=== PATIENT | male | born 1965 | race Caucasian/White ===

== ENCOUNTER 2018-02-27 08:15 | Emergency (ER) | payer BC, MEDICARE ==
[~2018-02-27] VITALS: Ht 162.6 cm; Wt 74.8 kg
--- NOTE | 2018-02-27 08:20 | NUR ---
PT AMBULATES TO BED 7
[2018-02-27 08:24] VITALS: BP 135/90
--- NOTE | 2018-02-27 08:28 | NUR ---
52/M BIB SELF C/O RIGHT SHOULDER PAIN X 2 DAYS. DENIES INJURY. DENIES N/V/D; SKIN IS PINK/WARM/DRY; AAOX4 WITH EVEN AND STEADY GAIT; LUNGS CLEAR BL; HR EVEN AND REGULAR. PATIENT STATES PAIN OF 9/10 AT THIS TIME. PATIENT POSITIONED FOR COMFORT; HOB ELEVATED; BEDRAILS UP X2; BED DOWN. ER MD MADE AWARE OF PT STATUS.
--- NOTE | 2018-02-27 09:15 | NUR ---
X RAY AT BEDSIDE.
--- NOTE | 2018-02-27 09:32 | NUR ---
Patient discharged with v/s stable. Written and verbal after care instructions given and explained. Patient alert, oriented and verbalized understanding of instructions. Ambulatory with steady gait. All questions addressed prior to discharge. ID band removed. Patient advised to follow up with PMD. Rx of NORCO, IBUPROFEN given. Patient educated on indication of medication including possible reaction and side effects. Opportunity to ask questions provided and answered.
[2018-02-27 09:33] VITALS: BP 123/90
== END 2018-02-27 09:32 | disposition home or self-care (01) ==
LOC: MED 08:15
DX: M25.511 Pain in right shoulder (principal); W22.8XXA Striking against or struck by other objects, initial encounter; Y93.89 Activity, other specified; Y92.89 Other specified places as the place of occurrence of the external cause; Y99.8 Other external cause status
CPT/HCPCS: 73030; 99283

== ENCOUNTER 2020-01-28 14:36 | Emergency (ER) | payer BC ==
[~2020-01-28] VITALS: Ht 180.3 cm; Wt 88.5 kg
[2020-01-28 14:40] VITALS: BP 149/78
--- NOTE | 2020-01-28 14:40 | NUR ---
C/O SOB, WEAKNESS SINCE THIS MORNING. AAOX4. RESP LABORED. SP02 93% RA. PT WILL REMAIN IN TENT AT THIS TIME NO PMH NKDA
--- NOTE | 2020-01-28 16:57 | NUR ---
COVID SWAB PERFORMED AND SENT TO LAB
[2020-01-28 16:58] VITALS: BP 149/78
--- NOTE | 2020-01-28 16:58 | NUR ---
Patient discharged with v/s stable. Written and verbal after care instructions given and explained. Patient alert, oriented and verbalized understanding of instructions. Ambulatory with steady gait. All questions addressed prior to discharge. ID band removed. Patient advised to follow up with PMD. Rx of PREDNISONE, ALBUTEROL given. Patient educated on indication of medication including possible reaction and side effects. Opportunity to ask questions provided and answered.
== END 2020-01-28 16:58 | disposition home or self-care (01) ==
LOC: MED 14:36
DX: U07.1 COVID-19 (principal); J45.909 Unspecified asthma, uncomplicated
CPT/HCPCS: 71045; 99284; U0003

== ENCOUNTER 2020-03-01 04:50 | Inpatient (IN) | payer BC, SELFPAY ==
[~2020-03-01] VITALS: Ht 167.6 cm; Wt 65.3 kg
[2020-03-01] MEDS ORDERED: NACL 0.9% 1,000 ML IV ONE (05:55)
[2020-03-01] MEDS ORDERED: ONDANSETRON 4 MG/2 ML VIAL IVP ONE (05:55)
[2020-03-01] MEDS ORDERED: MORPHINE SULFATE 4 MG/ML SYR IVP ONE ×2 (05:55→10:00)
[2020-03-01 05:59] VITALS: BP 110/70
--- NOTE | 2020-03-01 05:59 | NUR ---
TO MARYCARMEN VIA W/C
--- NOTE | 2020-03-01 06:02 | NUR ---
SEEN AND EXAMINED BY HEATHER WITH ORDERS, CARRIED OUT
--- NOTE | 2020-03-01 06:20 | NUR ---
MEDICATED PER ERMDS ORDER, TOLERATED WELL.
[2020-03-01 06:44] LABS: BASOPHILS % (AUTO) 0.4 % (0.0-2.0); EOSINOPHILS # (AUTO) 0.1 K/uL (0-0.4); EOSINOPHILS % (AUTO) 1.4 % (0.0-4.0); HEMATOCRIT 38.8 % (36-52); HEMOGLOBIN 12.6 g/dL (12.0-18.0); LYMPHOCYTES # (AUTO) 1.3 K/uL (2.0-11.5); LYMPHOCYTES % (AUTO) 15.2 % (20.5-51.1); MEAN CORPUSCULAR HEMOGLOBIN 25 pg (27-31); MEAN CORPUSCULAR HGB CONC 33 g/dL (33-37); MEAN CORPUSCULAR VOLUME 77.4 fL (80-94); MONOCYTES # (AUTO) 0.8 K/uL (0.8-1.0); MONOCYTES % (AUTO) 9.2 % (1.7-9.3); NEUTROPHILS # (AUTO) 6.5 K/uL (1.8-7.7); NEUTROPHILS % (AUTO) 73.8 % (42.2-75.2); PLATELET COUNT (AUTO) 334 K/uL (140-450); RED BLOOD CELL COUNT(AUTO) 5.01 MIL/uL (4.20-6.10); RED CELL DISTRIBUTION WIDTH 15.4 % (11.6-13.7); WHITE BLOOD COUNT (AUTO) 8.9 K/uL (4.8-10.8)
--- NOTE | 2020-03-01 07:10 | NUR ---
CONSENT FOR CT WITH IV CONTRAST SIGNED AND CONSENTED
[2020-03-01 07:12] LABS: ALBUMIN 3.4 g/dL (3.4-5.0); ANION GAP 13.7 (8-16); CARBON DIOXIDE 27.2 mmol/L (21-32); CREATININE 0.8 mg/dL (0.6-1.3); POTASSIUM 3.9 mmol/L (3.5-5.1); TOTAL BILIRUBIN 0.5 mg/dL (0.0-1.0)
[2020-03-01] MEDS ORDERED: metroNIDAZOLE 500 MG/NS PREMIX 100 ML IV ONE (10:00)
[2020-03-01] MEDS ORDERED: LEVOFLOXACIN 500 MG/D5W PREMIX 100 ML IV ONE (10:00)
--- NOTE | 2020-03-01 10:28 | NUR ---
Patient moved to bed 11 for further care.
[2020-03-01 12:29] LABS: PROTHROMBIN TIME 9.1 secs (10.8-13.4)
[2020-03-01] MEDS ORDERED: ONDANSETRON 4 MG/2 ML VIAL IM/IVP PRN (12:50)
[2020-03-01] MEDS ORDERED: DOCUSATE SODIUM 100 MG GELCAP PO PRN (12:50)
[2020-03-01] MEDS ORDERED: ACETAMINOPHEN 325 MG TAB PO PRN (12:50)
[2020-03-01] MEDS ORDERED: POTASSIUM CHLORIDE 10 MEQ TABER PO PRN (12:50)
[2020-03-01] MEDS ORDERED: DEXTROSE 50% 50 ML SYR IVP PRN (13:00)
[2020-03-01] MEDS: NACL 0.9% 1,000 ML IV SCH (13:10)
[2020-03-01 14:09] LABS: APPEARANCE,URINE HAZY (CLEAR); BILIRUBIN,URINE NEGATIVE (NEGATIVE); BLOOD, URINE NEGATIVE (NEGATIVE); COLOR,URINE YELLOW (YELLOW); LEUKOCYTE ESTERASE ,URINE NEGATIVE (NEGATIVE); NITRITE, URINE NEGATIVE (NEGATIVE); PH,URINE 5.5 (5.0-9.0); UGLUCOSE 1+ (NEGATIVE)
[2020-03-01 14:31] LABS: MAGNESIUM 2.2 mg/dL (1.8-2.4); PHOSPHORUS 3.4 mg/dL (2.5-4.9)
[2020-03-01] MEDS: metroNIDAZOLE 500 MG/NS PREMIX 100 ML IV SCH ×2 (16:15→21:53)
[2020-03-01] MEDS: BLOOD GLUCOSE MONITORING 1 DEV DEV FS SCH ×2 (17:02→21:53)
[2020-03-01] MEDS: SENNA 8.6 MG TAB PO SCH (17:03)
[2020-03-01] MEDS: POLYETHYLENE GLYCOL 17 GM/PKT PO SCH (17:03)
[2020-03-01] MEDS: INSULIN LISPRO SLIDING SCALE 100 UNITS/ML VIAL SUBQ PRN (17:04)
[2020-03-01 17:24] LABS: PROTHROMBIN TIME 9.5 secs (10.8-13.4)
[2020-03-01 21:30] VITALS: BP 128/88
[2020-03-01] MEDS: LACTULOSE 20 GM/30 ML UDC PO SCH (21:53)
[2020-03-01] MEDS: DOCUSATE SODIUM 100 MG GELCAP PO SCH (21:54)
--- NOTE | 2020-03-01 22:00 | NUR ---
PT TRANSFERRED TO [facility], ROOM 124A BY EMT @ THIS TIME VIA W/C. REPORT GIVEN TO JOSE CRUZ ROBERT. VSS UPON TRANSFER.
--- NOTE | 2020-03-01 22:30 | NUR ---
PT BROUGHT UP BY W/C TO ROOM 124, PT AMBULATED TO THE BED. PT IS AOX4 AND AMBULATORY. V/S STABLE ALL REQUESTED NEEDS ATTENDED BY STAFF.
--- NOTE | 2020-03-01 22:45 | NUR ---
PT STANDBY ASITS TO THE TOILET. IV SITE INTACT AND RUNNING N/S AT 60 MLS/HR.
[2020-03-01] MEDS: HYDROcodone/APAP 7.5/325 MG 1 TAB PO PRN (23:35)
--- NOTE | 2020-03-01 23:45 | NUR ---
PT GIVEN NORCO FOR PAIN IN LOWER ABDOMEN. WILL MONITOR FOR EFFECT.
--- NOTE | 2020-03-02 02:34 | NUR ---
PT C/O OF NOT HAVING BOWEL MOVEMENT IN 2 DAYS, BOWEL PREP GIVEN, PT NO LONGER HAVING BM, CONTACTED MD ZAVALA FOR ANY NEW ORDERS.
--- NOTE | 2020-03-02 03:03 | NUR ---
MD ZAVALA TEXTED BACK, POSSIBLE BOWEL OBSTRUCTION? WILL REVIEW THE CASE IN THE AM, NO NEW ORDERS NOTED.
[2020-03-02 04:00] VITALS: BP 126/79
[2020-03-02] MEDS: NACL 0.9% 1,000 ML IV SCH (05:30)
[2020-03-02 06:09] LABS: BASOPHILS % (AUTO) 0.6 % (0.0-2.0); EOSINOPHILS # (AUTO) 0.1 K/uL (0-0.4); EOSINOPHILS % (AUTO) 1.4 % (0.0-4.0); HEMATOCRIT 33.9 % (36-52); HEMOGLOBIN 10.6 g/dL (12.0-18.0); LYMPHOCYTES # (AUTO) 1.6 K/uL (2.0-11.5); LYMPHOCYTES % (AUTO) 18.9 % (20.5-51.1); MEAN CORPUSCULAR HEMOGLOBIN 25 pg (27-31); MEAN CORPUSCULAR HGB CONC 31 g/dL (33-37); MEAN CORPUSCULAR VOLUME 78.2 fL (80-94); MONOCYTES % (AUTO) 12.4 % (1.7-9.3); NEUTROPHILS # (AUTO) 5.5 K/uL (1.8-7.7); NEUTROPHILS % (AUTO) 66.7 % (42.2-75.2); PLATELET COUNT (AUTO) 286 K/uL (140-450); RED BLOOD CELL COUNT(AUTO) 4.33 MIL/uL (4.20-6.10); RED CELL DISTRIBUTION WIDTH 15.6 % (11.6-13.7); WHITE BLOOD COUNT (AUTO) 8.3 K/uL (4.8-10.8)
[2020-03-02] MEDS ORDERED: MORPHINE SULFATE 4 MG/ML SYR IVP PRN (06:25)
--- NOTE | 2020-03-02 06:31 | NUR ---
RETURNED SWAPNA, PT IN A LOT OF PAIN MD ZAVALA TEXTED NEW ORDER FOR MORPHINE IVP. FLAGYL HUNG ORDERED.
[2020-03-02 06:34] LABS: ANION GAP 15.4 (8-16); CARBON DIOXIDE 26.1 mmol/L (21-32); CREATININE 0.8 mg/dL (0.6-1.3); POTASSIUM 4.5 mmol/L (3.5-5.1)
[2020-03-02] MEDS: INSULIN LISPRO SLIDING SCALE 100 UNITS/ML VIAL SUBQ PRN ×4 (06:58→23:27)
--- NOTE | 2020-03-02 07:00 | NUR ---
PAIN RELIEVED PT REASTING IN BED FLUIDS RUNNING ORDERED.
--- NOTE | 2020-03-02 07:10 | NUR ---
RECEIVED BEDSIDE REPORT FROM ELEVATOR ERECTOR HELPER NURSE. AOX4. RESPIRATIONS EVEN AND UNLABORED. ON ROOM AIR SATING AT 96%. NO RESPIRATORY DISTRESS NOTED. SKIN IS WARM AND INTACT. IV SITE IS ON THE RAC 18 G RUNNING NS @ 60 CC/HR. INTACT AND PATENT. PLAN OF CARE WAS DISCUSSED. ON BOWEL PREPARATION. SAFETY PRECAUTIONS IN PLACE. CALL LIGHT WITHIN REACH. WILL CONTINUE TO MONITOR.
[2020-03-02 08:00] VITALS: BP 116/79
[2020-03-02] MEDS: BLOOD GLUCOSE MONITORING 1 DEV DEV FS SCH ×4 (08:00→23:23)
[2020-03-02] MEDS: metroNIDAZOLE 500 MG/NS PREMIX 100 ML IV SCH ×3 (08:01→21:38)
--- NOTE | 2020-03-02 09:10 | NUR ---
PATIENT HAS BEEN SCREENED AND CATEGORIZED MODERATE NUTRITION RISK. PATIENT WILL BE SEEN WITHIN 3-5 DAYS OF ADMISSION. 03/04/20 03/06/[address]
[2020-03-02] MEDS: DOCUSATE SODIUM 100 MG GELCAP PO SCH (09:23)
[2020-03-02] MEDS: HYDROcodone/APAP 7.5/325 MG 1 TAB PO PRN (09:23)
[2020-03-02] MEDS: SENNA 8.6 MG TAB PO SCH ×3 (09:23→17:44)
[2020-03-02] MEDS: LACTULOSE 20 GM/30 ML UDC PO SCH ×4 (09:23→21:38)
[2020-03-02] MEDS: LEVOFLOXACIN 500 MG/D5W PREMIX 100 ML IV SCH (09:24)
[2020-03-02] MEDS: POLYETHYLENE GLYCOL 17 GM/PKT PO SCH ×3 (09:24→17:44)
--- NOTE | 2020-03-02 09:30 | NUR ---
ALL SCHEDULED MEDS GIVEN. PT IS STABLE. NO DISTRESS NOTED. WILL CONTINUE TO MONITOR.
--- NOTE | 2020-03-02 10:15 | NUR ---
SOCIAL WORK NOTE: DANNIE WAS UNABLE TO MEET PATIENT AT BEDSIDE. DANNIE CONTACTED ISATU FERNANDO [phone] TO COMPLETE ASSESSMENT. SW LEFT VM AND WILL FOLLOW UP. Addendum: 03/03/20 at 1044 by Manas Zaldivar SS Patient's Orientation Unable To Assess Information Provided By ISATU QUINTANA - Comments SW WAS UNABLE TO MEET PATIENT AT BEDSIDE. DANNIE COMPLETED ASSESSMENT WITH PATIENT'S . Fishery Biologist, Realtionship and Phone Number ISATU ELLIOTT [phone] Healthcare Power of Baggage Screener No Does Patient Have a POLST No Identifying Problems No Social Work Triggers Is A Social Work Consult Needed No Mandate Report Filed No Explanation Of Identifying Problems PATIENT IS A 54-YEAR-OLD MALE ADMITTED FOR ACUTE DIVERTICULITIS. PATIENT HAS PMHX OF HEMMORRHOIDS AND INSULIN DEPENDENT DIABETES. REPORTED NO HX OF SUBSTANCE ABUSE OR MENTAL HEALTH. Admitted From Home Pre-Admission Level Of Functioning Status Independent/Ambulatory Prior Resources/Services Used In Last 12 Months No Prior Resources Used Prior DME No Prior DME Used Dialysis Comments N/A Living Situation Apartment Lives With Family Patient Had Caregiver No Home Support No Caregiver Issues Financial Issues No Known Financial Issue Referral To The Financial Counselor Needed No Factors/Needs No D/C Needs Identified Pt/Rep Participated In Discharge Plan Yes Patient/Family Agress With Discharge Plan Yes Discharge Plan Comments TENTATIVE DISCHARGE PLAN IS FOR PATIENT TO RETURN HOME. DC Plan Status Initiated
--- NOTE | 2020-03-02 11:30 | NUR ---
BLOOD GLUCOSE CHECK IS 254. INSULIN COVERAGE NEEDED. ADMINISTERED 4 UNITS OF INSULIN.
[2020-03-02 12:00] VITALS: BP 118/76
[2020-03-02] MEDS ORDERED: BOWEL EVACUANT DRINK 4,000 ML PDS PO ONE (13:00)
[2020-03-02] MEDS ORDERED: MAGNESIUM CITRATE 300 ML BTL PO SCH (13:00)
--- NOTE | 2020-03-02 14:05 | NUR ---
CHECKED ON PATIENT. PATIENT IS STABLE. NO DISTRESS NOTED. WILL CONTINUE TO MONITOR.
--- NOTE | 2020-03-02 14:17 | NUR ---
NOTIFIED DR. TERAN REGARDING PATIENT'S COLONOSCOPY PROCEDURE. RADIOLOGY UNIT WILL NOT BE ABLE TO DO PROCEDURE DUE TO EQUIPMENT MALFUNCTION. IS AWARE OF THE ISSUES. AWAITING NEW ORDERS. WILL CONTINUE TO MONITOR.
[2020-03-02] MEDS: POTASSIUM CHL 10 MEQ/D5-1/2NS 1,000 ML IV SCH ×2 (14:44→23:49)
[2020-03-02 16:00] VITALS: BP 161/69
--- NOTE | 2020-03-02 16:41 | NUR ---
BLOOD GLUCOSE CHECK IS 168. INSULIN COVERAGE NEEDED. ADMINISTERED 2 UNITS OF INSULIN.
--- NOTE | 2020-03-02 17:44 | NUR ---
ALL SCHEDULED MEDS GIVEN. PT IS STABLE. NO RESPIRATORY DISTRESS NOTED. WILL CONTINUE TO MONITOR.
--- NOTE | 2020-03-02 19:30 | NUR ---
ENDORSED TO RN BIRTHING NURSE FOR CONTINUITY OF CARE. PT IS STABLE CONDITION.
[2020-03-03] MEDS: metroNIDAZOLE 500 MG/NS PREMIX 100 ML IV SCH ×3 (05:47→14:38)
[2020-03-03] MEDS ORDERED: MAGNESIUM CITRATE 300 ML BTL PO ONE (06:00)
[2020-03-03] MEDS: BLOOD GLUCOSE MONITORING 1 DEV DEV FS SCH ×3 (07:07→16:30)
[2020-03-03 07:08] LABS: ANION GAP 15.6 (8-16); CARBON DIOXIDE 25.1 mmol/L (21-32); CREATININE 0.8 mg/dL (0.6-1.3); POTASSIUM 3.7 mmol/L (3.5-5.1)
[2020-03-03] MEDS: INSULIN LISPRO SLIDING SCALE 100 UNITS/ML VIAL SUBQ PRN ×3 (07:10→18:52)
[2020-03-03 07:19] LABS: BASOPHILS % (AUTO) 0.5 % (0.0-2.0); EOSINOPHILS # (AUTO) 0.1 K/uL (0-0.4); EOSINOPHILS % (AUTO) 1.7 % (0.0-4.0); HEMATOCRIT 33.5 % (36-52); HEMOGLOBIN 10.8 g/dL (12.0-18.0); LYMPHOCYTES # (AUTO) 1.3 K/uL (2.0-11.5); LYMPHOCYTES % (AUTO) 20.7 % (20.5-51.1); MEAN CORPUSCULAR HEMOGLOBIN 25 pg (27-31); MEAN CORPUSCULAR HGB CONC 32 g/dL (33-37); MEAN CORPUSCULAR VOLUME 77.4 fL (80-94); MONOCYTES # (AUTO) 0.8 K/uL (0.8-1.0); MONOCYTES % (AUTO) 12.6 % (1.7-9.3); NEUTROPHILS # (AUTO) 4.1 K/uL (1.8-7.7); NEUTROPHILS % (AUTO) 64.5 % (42.2-75.2); PLATELET COUNT (AUTO) 290 K/uL (140-450); RED BLOOD CELL COUNT(AUTO) 4.32 MIL/uL (4.20-6.10); RED CELL DISTRIBUTION WIDTH 15.3 % (11.6-13.7); WHITE BLOOD COUNT (AUTO) 6.4 K/uL (4.8-10.8)
[2020-03-03 08:00] VITALS: BP 121/70
[2020-03-03] MEDS: POTASSIUM CHL 10 MEQ/D5-1/2NS 1,000 ML IV SCH (09:00)
[2020-03-03] MEDS: LACTULOSE 20 GM/30 ML UDC PO SCH ×3 (09:24→21:00)
[2020-03-03] MEDS: LEVOFLOXACIN 500 MG/D5W PREMIX 100 ML IV SCH (09:24)
[2020-03-03] MEDS: POLYETHYLENE GLYCOL 17 GM/PKT PO SCH (09:25)
[2020-03-03] MEDS: SENNA 8.6 MG TAB PO SCH ×2 (09:25→21:39)
[2020-03-03] MEDS ORDERED: diphenhydrAMINE 50 MG/ML VIAL ONE (13:06)
[2020-03-03] MEDS ORDERED: fentaNYL citrate 0.05 MG/ML VIAL ONE (13:06)
[2020-03-03] MEDS ORDERED: LIDOCAINE 2% 100 MG/5 ML UJET TP ONE (13:07)
[2020-03-03] MEDS ORDERED: MIDAZOLAM 5 MG/5 ML VIAL ONE (13:07)
--- NOTE | 2020-03-03 13:21 | NUR ---
Patient AOx4, On room air, sat. 99%. Denies SOb, any pain or discomfort. patient continuing bowel prep and finished Golytely, patient has been having watery diarrhea. Patient left for colonoscopy at 1320
--- NOTE | 2020-03-03 13:57 | NUR ---
DC PLANIN YRS OLD MALE PATIENT WAS ADMITTED FROM HOME WITH A DX OF ACUTE DIVERTICULITIS , PROCTITIS. PT HAS A HX OF DM, HEMORRHOIDS. H/H WNL RAPID COVID TEST NEGATIVE. ADMINISTERED IVF IV ABX LEVAQUIN.CONSULTED WITH GI AND SURGEON . DC PLAN TO GO HOME WHEN STABLE CM TO FOLLOW.
[2020-03-03] MEDS: NACL 0.9% 1,000 ML IV SCH ×2 (14:38→14:52)
[2020-03-03] MEDS ORDERED: MIDAZOLAM 2 MG/2 ML VIAL IVP ONE (15:20)
[2020-03-03] MEDS ORDERED: fentaNYL citrate 0.05 MG/ML VIAL IVP ONE (15:20)
--- NOTE | 2020-03-03 15:30 | NUR ---
Patient came back from colonscopy at 1505. Patient awake, denies any pain. resting in bed. call light within reach. will continue patient care.
[2020-03-03 16:00] VITALS: BP 122/80
[2020-03-03] MEDS ORDERED: fentaNYL citrate 0.05 MG/ML VIAL IVP SCH (16:00)
[2020-03-03] MEDS ORDERED: MIDAZOLAM 2 MG/2 ML VIAL IV SCH (16:00)
--- NOTE | 2020-03-03 19:39 | NUR ---
ROUNDING TIME: FIRST ROUNDS OBSERVATIONS: PT RETURNED FROM RESTROOM PT. LOCATION: IN BED, CALM, ALERT, ORIENTED *4 PT. CONDITION: PT CONDITION STABLE, NO ADVERSE CHANGE FROM BASELINE.
[2020-03-03 20:00] VITALS: BP 118/78
--- NOTE | 2020-03-03 21:30 | NUR ---
ROUNDING TIME:2129 OBSERVATIONS:SALINE LOCK OUT PT. LOCATION:PT IN BED PT. CONDITION:SUPINE, ALERT,ORIENTED*4,RESP REG.EVEN.UNLABORED ACTION/INTERVENTION:RESTARTED SALINE LOCK TO RFA W 22G ANGIOCATH X1.PATENT, W/O PAIN, FLUSHES W/O RESISTANCE, GOOD BLOOD RETURN
[2020-03-04] MEDS: metroNIDAZOLE 500 MG/NS PREMIX 100 ML IV SCH ×4 (00:04→20:47)
[2020-03-04] MEDS: BLOOD GLUCOSE MONITORING 1 DEV DEV FS SCH ×7 (00:05→21:42)
[2020-03-04] MEDS: INSULIN LISPRO SLIDING SCALE 100 UNITS/ML VIAL SUBQ PRN ×3 (00:25→21:42)
[2020-03-04 04:00] VITALS: BP 107/76
[2020-03-04 06:22] LABS: BASOPHILS % (AUTO) 0.6 % (0.0-2.0); EOSINOPHILS # (AUTO) 0.1 K/uL (0-0.4); EOSINOPHILS % (AUTO) 1.8 % (0.0-4.0); HEMATOCRIT 33.2 % (36-52); HEMOGLOBIN 10.6 g/dL (12.0-18.0); LYMPHOCYTES # (AUTO) 1.3 K/uL (2.0-11.5); MEAN CORPUSCULAR HEMOGLOBIN 25 pg (27-31); MEAN CORPUSCULAR HGB CONC 32 g/dL (33-37); MEAN CORPUSCULAR VOLUME 77.9 fL (80-94); MONOCYTES # (AUTO) 0.8 K/uL (0.8-1.0); MONOCYTES % (AUTO) 10.7 % (1.7-9.3); NEUTROPHILS # (AUTO) 5.2 K/uL (1.8-7.7); NEUTROPHILS % (AUTO) 68.9 % (42.2-75.2); PLATELET COUNT (AUTO) 302 K/uL (140-450); RED BLOOD CELL COUNT(AUTO) 4.26 MIL/uL (4.20-6.10); RED CELL DISTRIBUTION WIDTH 15.3 % (11.6-13.7); WHITE BLOOD COUNT (AUTO) 7.5 K/uL (4.8-10.8)
[2020-03-04] MEDS: POTASSIUM CHL 10 MEQ/D5-1/2NS 1,000 ML IV SCH (06:42)
[2020-03-04 06:48] LABS: ANION GAP 14.5 (8-16); CARBON DIOXIDE 24.4 mmol/L (21-32); CREATININE 0.8 mg/dL (0.6-1.3); POTASSIUM 3.9 mmol/L (3.5-5.1)
--- NOTE | 2020-03-04 07:25 | NUR ---
RECEIVED REPORT FROM NIGHT NURSE FOR CONTINUITY OF CARE. PT IS STABLE. PT RESTING IN BED. PT HAS RFA 22G INFUSING D5 1/2 NC WITH 10 MEQ KCL AT 40 ML/H. SKIN INTACT. NO SIGNS OF DISTRESS NOTED, SAFETY MEASURES IN PLACE, WILL CONTINUE TO MONITOR.
[2020-03-04 08:00] VITALS: BP 131/90
[2020-03-04] MEDS: LACTULOSE 20 GM/30 ML UDC PO SCH ×2 (09:05→20:47)
[2020-03-04] MEDS: POLYETHYLENE GLYCOL 17 GM/PKT PO SCH (09:06)
--- NOTE | 2020-03-04 09:07 | NUR ---
ADMINISTERED SCHEDULED MEDICATION, MEDICATION EDUCATION PROVIDED. WILL CONTINUE TO MONITOR.
[2020-03-04] MEDS: LEVOFLOXACIN 500 MG/D5W PREMIX 100 ML IV SCH (10:07)
--- NOTE | 2020-03-04 12:09 | NUR ---
ADMINISTERED 4 UNITS OF HUMALOG FOR BLOOD GLUCOSE OF 227, MEDICATION EDUCATION PROVIDED. PT TOLERATED WELL. PT IS STABLE, WILL CONTINUE TO MONITOR.
--- NOTE | 2020-03-04 12:43 | NUR ---
ADMINISTERED SCHEDULED MEDICATION, MEDICATION EDUCATION PROVIDED. PT TOLERATED WELL. PT IS STABLE, WILL CONTINUE TO MONITOR.
[2020-03-04] MEDS ORDERED: LIDOCAINE 1% 500 MG/50 ML VIAL ONE (14:58)
[2020-03-04] MEDS ORDERED: BUPIVACAINE-MPF/EPI 0.5% 30 ML VIAL INJ ONE (14:59)
[2020-03-04] MEDS ORDERED: LIDOCAINE MPF 2% 100 MG/5 ML VIAL INJ ONE (15:27)
[2020-03-04] MEDS ORDERED: SUCCINYLCHOLINE CHLORIDE 200 MG/10 ML VIAL IVP ONE (15:27)
[2020-03-04] MEDS ORDERED: GLYCOPYRROLATE 0.2 MG/ML VIAL ONE (15:27)
[2020-03-04] MEDS ORDERED: ePHEDrine 50 MG/ML VIAL ONE (15:27)
[2020-03-04] MEDS ORDERED: SEVOFLURANE 250 ML BTL INH ONE (15:27)
[2020-03-04] MEDS ORDERED: METOCLOPRAMIDE 10 MG/2 ML INJ VIAL ONE (15:27)
[2020-03-04] MEDS ORDERED: ONDANSETRON 4 MG/2 ML VIAL ONE (15:27)
[2020-03-04] MEDS ORDERED: NEOSTIGMINE 1:1000 10 MG/10 ML VIAL ONE (15:27)
[2020-03-04] MEDS ORDERED: PROPOFOL 200 MG/20 ML VIAL IV ONE (15:27)
[2020-03-04] MEDS ORDERED: fentaNYL citrate 0.05 MG/ML VIAL ONE (15:27)
[2020-03-04] MEDS ORDERED: ROCURONIUM 50 MG/5 ML VIAL IV ONE (15:27)
[2020-03-04] MEDS ORDERED: ETOMIDATE 20 MG/10 ML VIAL IVP ONE (15:27)
[2020-03-04] MEDS ORDERED: DEXAMETHASONE 4 MG/ML VIAL ONE (15:27)
[2020-03-04] MEDS ORDERED: MEPERIDINE 25 MG/ML SYR IVP PRN (16:15)
[2020-03-04] MEDS ORDERED: ONDANSETRON 4 MG/2 ML VIAL IVP PRN (16:15)
--- NOTE | 2020-03-04 17:20 | NUR ---
PT BACK IN ROOM ROOM OR. PT IS STABLE, WILL CONTINUE TO MONITOR
--- NOTE | 2020-03-04 19:30 | NUR ---
ENDORSE PT TO NIGHT NURSE FOR CONTINUITY OF CARE
--- NOTE | 2020-03-04 19:30 | NUR ---
RECEIVED PATIENT FROM AM SHIFT NURSE FOR CONTINUITY OF CARE. AAOX4. RESPIRATIONS EVEN, UNLABORED. NO C/O PAIN. NO S/S ACUTE DISTRESS. SKIN WARM, DRY. IV SITE NOTED TO RIGHT FOREARM 22G PATENT/INTACT, INFUSING FLUIDS WELL. NEW IV STARTED IN RIGHT AC 20G DUE TO UPCOMING CT SCAN WITH CONTRAST. MEDIPORT NOTED TO RIGHT CHEST. ABDOMEN SOFT, NONTENDER, NONDISTENDED. BOWEL SOUNDS ACTIVE X4 QUADRANTS. PATIENT IS INCONTINENT OF B/B. PLAN OF CARE DISCUSSED. CALL LIGHT WITHIN REACH. SAFETY PRECAUTIONS IN PLACE.
[2020-03-04 20:00] VITALS: BP 105/66
[2020-03-04] MEDS: SENNA 8.6 MG TAB PO SCH (20:47)
--- NOTE | 2020-03-04 21:30 | NUR ---
DUE MEDS GIVEN. PATIENT RESTING COMFORTABLY IN BED. NO S/S ACUTE DISTRESS. CALL LIGHT WITHIN REACH.
--- NOTE | 2020-03-04 23:00 | NUR ---
PATIENT IS ASLEEP. NO S/S ACUTE DISTRESS. CALL LIGHT WITHIN REACH. SAFETY PRECAUTIONS IN PLACE.
[2020-03-05] MEDS: POTASSIUM CHL 10 MEQ/D5-1/2NS 1,000 ML IV SCH (00:57)
--- NOTE | 2020-03-05 01:00 | NUR ---
MADE ROUNDS. PATIENT IS ASLEEP. NO S/S ACUTE DISTRESS. CALL LIGHT WITHIN REACH. SAFETY PRECAUTIONS IN PLACE.
--- NOTE | 2020-03-05 03:30 | NUR ---
MADE ROUNDS. PATIENT IS ASLEEP. NO S/S ACUTE DISTRESS. CALL LIGHT WITHIN REACH.
[2020-03-05 04:00] VITALS: BP 136/79
[2020-03-05] MEDS: metroNIDAZOLE 500 MG/NS PREMIX 100 ML IV SCH ×3 (04:54→21:00)
--- NOTE | 2020-03-05 05:40 | NUR ---
PATIENT IS ASLEEP. NO S/S ACUTE DISTRESS. CALL LIGHT WITHIN REACH.
[2020-03-05] MEDS: BLOOD GLUCOSE MONITORING 1 DEV DEV FS SCH ×4 (06:45→21:00)
[2020-03-05] MEDS: INSULIN LISPRO SLIDING SCALE 100 UNITS/ML VIAL SUBQ PRN ×3 (06:46→18:19)
--- NOTE | 2020-03-05 07:23 | NUR ---
ENDORSED PATIENT TO AM SHIFT NURSE FOR CONTINUITY OF CARE.
--- NOTE | 2020-03-05 07:30 | NUR ---
RECEIVED PT AAOX4. NO SOB NOTED, ON ROOM AIR. NO C/O PAIN AT THIS TIME. INSTRUCTED PT TO CALL FOR ASSISTANCE, CALL LIGHT WITHIN REACH, VERBALIZED UNDERSTANDING.
--- NOTE | 2020-03-05 07:30 | NUR ---
RECEIVED REPORT FROM FILTER WORKER NURSE. PATIENT IN STABLE CONDITION.
[2020-03-05 08:00] VITALS: BP 126/83
--- NOTE | 2020-03-05 08:28 | NUR ---
SPOKE WITH DR. ESCOBAR, STATED HE WILL COME AROUND 9AM TODAY TO SIGN THE CT AP WITH CONTRAST. NPO MAINTAINED, PT VERBALIZED UNDERSTANDING.
[2020-03-05] MEDS: LACTULOSE 20 GM/30 ML UDC PO SCH ×2 (09:00→21:00)
[2020-03-05] MEDS: POLYETHYLENE GLYCOL 17 GM/PKT PO SCH (09:00)
--- NOTE | 2020-03-05 09:30 | NUR ---
DR. ESCOBAR SIGNED CT CONSENT, EXPLAINED PROCEDURE TO PT, VERBALIZED UNDERSTANDING. CT DEPT MADE AWARE. NPO MAINTAINED FOR PROCEDURE. ENDORSED CARE TO KRYSTAL.
[2020-03-05] MEDS: HYDROcodone/APAP 7.5/325 MG 1 TAB PO PRN (14:15)
--- NOTE | 2020-03-05 14:18 | NUR ---
PATENT COMPLAINS OF PAIN, NORCO GIVEN AT THIS TIME. WILL CONTINUE TO MONITOR.
[2020-03-05 16:00] VITALS: BP 115/78
--- NOTE | 2020-03-05 18:19 | NUR ---
SCHEDULED MEDICATIONS DUE GIVEN. WILL CONTINUE TO MONITOR.
--- NOTE | 2020-03-05 19:50 | NUR ---
GAVE REPORT TO PERSONAL CONSULTANT NURSE FOR CONTINUITY OF CARE. PATIENT IN STABLE CONDITION.
[2020-03-05] MEDS: SENNA 8.6 MG TAB PO SCH (21:00)
[2020-03-06] VITALS: BP 116/78
[2020-03-06] MEDS: POTASSIUM CHL 10 MEQ/D5-1/2NS 1,000 ML IV SCH (00:13)
[2020-03-06] MEDS: HYDROcodone/APAP 7.5/325 MG 1 TAB PO PRN (02:29)
[2020-03-06] MEDS: metroNIDAZOLE 500 MG/NS PREMIX 100 ML IV SCH (05:23)
[2020-03-06] MEDS: BLOOD GLUCOSE MONITORING 1 DEV DEV FS SCH ×2 (05:56→11:30)
[2020-03-06 08:00] VITALS: BP 128/89
[2020-03-06] MEDS: POLYETHYLENE GLYCOL 17 GM/PKT PO SCH (09:00)
[2020-03-06] MEDS: LACTULOSE 20 GM/30 ML UDC PO SCH ×2 (09:00→10:12)
[2020-03-06] MEDS ORDERED: METF1000 PO (10:40)
[2020-03-06] MEDS ORDERED: DOCU-299 PO (10:40)
[2020-03-06] MEDS ORDERED: MIRABULK PO (10:40)
[2020-03-06 11:18] VITALS: BP 128/89
--- NOTE | 2020-03-06 12:45 | NUR ---
PT DISCHARGED, ESCORTED TO VEHICLE VIA WHEELCHAIR, IV CATHETER REMOVED, ID BAND REMOVED, ALL PERSONAL BELONGINGS WERE TAKEN BY PATIENT TO PRIVATE VEHICLE. DISCHARGE PACKET WAS GIVEN TO PATIENT. PT STABLE
== END 2020-03-06 12:40 | disposition home or self-care (01) | DRG 240 ==
LOC: MED 04:50 → MTU 12:53
PROVIDERS: ADMIT Emergency Medicine; ATTEND Emergency Medicine
PROC: 0DBP8ZX Excision of Rectum, Via Natural or Artificial Opening Endoscopic, Diagnostic (ICD-10-PCS; principal; 2020-03-03 13:30)
PROC: 0JH60WZ Insertion of Totally Implantable Vascular Access Device into Chest Subcutaneous Tissue and Fascia, Open Approach (ICD-10-PCS; 2020-03-04)
PROC: 02HV33Z Insertion of Infusion Device into Superior Vena Cava, Percutaneous Approach (ICD-10-PCS; 2020-03-04)
PROC: B5181ZA Fluoroscopy of Superior Vena Cava using Low Osmolar Contrast, Guidance (ICD-10-PCS; 2020-03-04)
DX: C20 Malignant neoplasm of rectum (principal); K57.32 Diverticulitis of large intestine without perforation or abscess without bleeding; E87.1 Hypo-osmolality and hyponatremia; J45.909 Unspecified asthma, uncomplicated; K59.00 Constipation, unspecified; Z20.822 Contact with and (suspected) exposure to COVID-19; E11.9 Type 2 diabetes mellitus without complications; R91.8 Other nonspecific abnormal finding of lung field; N50.819 Testicular pain, unspecified; Z79.4 Long term (current) use of insulin
CPT/HCPCS: 36415; 45381; 71045; 71270; 76870; 80048; 80053; 81003; 82378; 82948; 83036; 83605; 83690; 83735; 84100; 85025; 85610; 85730; 87040; 87081; 88305; 96361; 96365; 96375; 99285; C1788; J0330; J1100; J1200; J1644; J1956; J2001; J2250; J2270; J2405; J2704; J2710; J2765; J3010; J3490; J7030; Q9967

== ENCOUNTER 2020-04-05 15:13 | Emergency (ER) | payer BC, SELFPAY ==
[~2020-04-05] VITALS: Ht 167.6 cm; Wt 63.5 kg
[~2020-04-05 15:13] MED LIST: DOCU-299 PO; METF1000 PO; MIRABULK PO
[2020-04-05 15:19] VITALS: BP 126/50
--- NOTE | 2020-04-05 15:25 | NUR ---
CAME IN THIS 54 YEAR OLD MALEPER WHEELCHAIR FROM TRIAGE, AWAKE, ALERT, ORIENTEDX4, BREATHING SPONTANEOUSLY AT ROOM AIR. WITH CHIED COMPLAINTS OF RECTAL PAIN FOR 2-3DAYS. SKIN WARM TO TOUCH AND NORML IN COLOR. INTIAL VITAL SIGNS TAKEN AND RECORDED, STABLE. MEDICALHX: Acute diverticulitis,Proctitis,Severe constipation,Insulin-dependent diabetes,Asthma,hemorrhoids ALLERGY: NO KNOWN
--- NOTE | 2020-04-05 15:52 | NUR ---
SEEN AND EXAMINED BY DR. MAVIS ART, SURGERY.
[2020-04-05] MEDS ORDERED: ONDANSETRON 4 MG/2 ML VIAL IVP ONE (15:55)
[2020-04-05] MEDS ORDERED: fentaNYL citrate 0.05 MG/ML VIAL IVP ONE ×2 (15:55→18:25)
[2020-04-05] MEDS ORDERED: NACL 0.9% 1,000 ML IV ONE (15:55)
--- NOTE | 2020-04-05 16:21 | NUR ---
IV CANNULA G18 INSERTED ASEPTICALLY AT RT ANTECUBITAL VEIN, ASYMPTOMATIC AND PATENT. IV FLUID 0.9NS 1L BOLUS INITIATED AND ORDERED MEDICTAION GIVEN
[2020-04-05 16:24] LABS: BASOPHILS % (AUTO) 0.7 % (0.0-2.0); EOSINOPHILS # (AUTO) 0.2 K/uL (0-0.4); EOSINOPHILS % (AUTO) 3.1 % (0.0-4.0); HEMOGLOBIN 10.4 g/dL (12.0-18.0); LYMPHOCYTES # (AUTO) 1.3 K/uL (2.0-11.5); MEAN CORPUSCULAR HEMOGLOBIN 25 pg (27-31); MEAN CORPUSCULAR HGB CONC 32 g/dL (33-37); MEAN CORPUSCULAR VOLUME 76.5 fL (80-94); MONOCYTES # (AUTO) 0.8 K/uL (0.8-1.0); MONOCYTES % (AUTO) 10.3 % (1.7-9.3); NEUTROPHILS % (AUTO) 67.9 % (42.2-75.2); PLATELET COUNT (AUTO) 357 K/uL (140-450); RED BLOOD CELL COUNT(AUTO) 4.18 MIL/uL (4.20-6.10); RED CELL DISTRIBUTION WIDTH 15.4 % (11.6-13.7); WHITE BLOOD COUNT (AUTO) 7.3 K/uL (4.8-10.8)
--- NOTE | 2020-04-05 16:40 | NUR ---
COVID ISRA TEST DONE AND SENT TO LAB
[2020-04-05 16:43] LABS: PROTHROMBIN TIME 9.5 secs (10.8-13.4)
[2020-04-05 16:46] LABS: ALBUMIN 3.1 g/dL (3.4-5.0); ANION GAP 13.5 (8-16); CARBON DIOXIDE 25.2 mmol/L (21-32); CREATININE 0.8 mg/dL (0.6-1.3); POTASSIUM 3.7 mmol/L (3.5-5.1); TOTAL BILIRUBIN 0.2 mg/dL (0.0-1.0)
[2020-04-05 16:49] LABS: APPEARANCE,URINE CLEAR (CLEAR); BILIRUBIN,URINE NEGATIVE (NEGATIVE); BLOOD, URINE NEGATIVE (NEGATIVE); COLOR,URINE YELLOW (YELLOW); LEUKOCYTE ESTERASE ,URINE NEGATIVE (NEGATIVE); NITRITE, URINE NEGATIVE (NEGATIVE); UGLUCOSE 3+ (NEGATIVE)
--- NOTE | 2020-04-05 17:21 | NUR ---
TO CT SCAN DEPARTMENT PER WHEELCHAIR IN STABLE CONDITION, FOR CT ABDOME/PELVIS WITH CONTRAST
--- NOTE | 2020-04-05 18:00 | NUR ---
CT SCAN ABOMEN/PELVIS WITH CONTRAST DONE, PATIENT INSTRUCTED NOT TO TAKE METFORMIN FOR 48 HOURS
[2020-04-05] MEDS ORDERED: DOCU-474 PO (19:09)
--- NOTE | 2020-04-05 19:15 | NUR ---
RECEIVED TRNASFER OF CARE REPORT FROM NATAN BILLINGSLEY FOR CONTINUATION OF CARE.
[2020-04-05 19:38] VITALS: BP 118/82
--- NOTE | 2020-04-05 19:38 | NUR ---
IV removed, catheter intact and site benign. Applied folded 4x4 gauze and tape to stop bleeding.
--- NOTE | 2020-04-05 19:38 | NUR ---
Patient discharged with v/s stable. Written and verbal after care instructions given and explained. Patient alert, oriented and verbalized understanding of instructions. Ambulatory with steady gait. All questions addressed prior to discharge. ID band removed. Patient advised to follow up with PMD. Rx of COLACE given. Patient educated on indication of medication including possible reaction and side effects. Opportunity to ask questions provided and answered.
== END 2020-04-05 19:38 | disposition home or self-care (01) ==
LOC: MED 15:13
DX: C21.8 Malignant neoplasm of overlapping sites of rectum, anus and anal canal (principal); Z20.822 Contact with and (suspected) exposure to COVID-19; K59.00 Constipation, unspecified; D64.9 Anemia, unspecified; J45.909 Unspecified asthma, uncomplicated; E11.9 Type 2 diabetes mellitus without complications; Z79.84 Long term (current) use of oral hypoglycemic drugs; Z79.899 Other long term (current) drug therapy
CPT/HCPCS: 36415; 74177; 80053; 81003; 85025; 85610; 85730; 86886; 86900; 86901; 87426; 93005; 96361; 96374; 96375; 99285; J2405; J3010; Q9967

== ENCOUNTER 2020-08-02 12:20 | Inpatient (IN) | payer BC, SELFPAY ==
[~2020-08-02] VITALS: Ht 165.1 cm; Wt 60.8 kg
[~2020-08-02 12:20] MED LIST changes: +DOCU-474 PO
[2020-08-02 13:01] VITALS: BP 98/66
[2020-08-02] MEDS ORDERED: NACL 0.9% 1,000 ML IV ONE ×2 (13:10→16:35)
[2020-08-02 13:49] LABS: BASOPHILS % (AUTO) 0.3 % (0.0-2.0); EOSINOPHILS % (AUTO) 0.3 % (0.0-4.0); HEMATOCRIT 29.5 % (36-52); HEMOGLOBIN 9.2 g/dL (12.0-18.0); LYMPHOCYTES % (AUTO) 13.8 % (20.5-51.1); MEAN CORPUSCULAR HEMOGLOBIN 24 pg (27-31); MEAN CORPUSCULAR HGB CONC 31 g/dL (33-37); MEAN CORPUSCULAR VOLUME 75.4 fL (80-94); MONOCYTES # (AUTO) 1.7 K/uL (0.8-1.0); MONOCYTES % (AUTO) 22.7 % (1.7-9.3); NEUTROPHILS # (AUTO) 4.8 K/uL (1.8-7.7); NEUTROPHILS % (AUTO) 62.9 % (42.2-75.2); PLATELET COUNT (AUTO) 347 K/uL (140-450); RED BLOOD CELL COUNT(AUTO) 3.92 MIL/uL (4.20-6.10); RED CELL DISTRIBUTION WIDTH 24.1 % (11.6-13.7); WHITE BLOOD COUNT (AUTO) 7.5 K/uL (4.8-10.8)
[2020-08-02 13:59] LABS: ANION GAP 16.2 (8-16); CARBON DIOXIDE 22.5 mmol/L (21-32); CREATININE 0.8 mg/dL (0.6-1.3); POTASSIUM 4.7 mmol/L (3.5-5.1)
[2020-08-02 14:00] LABS: PROTHROMBIN TIME 10.1 secs (10.8-13.4)
[2020-08-02 14:20] LABS: ALBUMIN 2.5 g/dL (3.4-5.0); TOTAL BILIRUBIN 0.5 mg/dL (0.0-1.0)
[2020-08-02] MEDS ORDERED: fentaNYL citrate 0.05 MG/ML VIAL IVP ONE (15:15)
[2020-08-02] MEDS ORDERED: NACL 0.9% 1,000 ML IV SCH (16:35)
[2020-08-02 17:25] VITALS: BP 136/88
[2020-08-02 20:00] VITALS: BP 99/59
[2020-08-02] MEDS: PIPERACILLIN/TAZOBACTAM 3.375 GM in DEXTROSE 5% 50 ML IV SCH (20:07)
[2020-08-02 22:07] LABS: APPEARANCE,URINE CLEAR (CLEAR); BILIRUBIN,URINE NEGATIVE (NEGATIVE); BLOOD, URINE NEGATIVE (NEGATIVE); COLOR,URINE YELLOW (YELLOW); LEUKOCYTE ESTERASE ,URINE NEGATIVE (NEGATIVE); NITRITE, URINE NEGATIVE (NEGATIVE); UGLUCOSE TRACE (NEGATIVE)
[2020-08-02] MEDS: MORPHINE SULFATE 4 MG/ML SYR IVP PRN (23:27)
[2020-08-02] MEDS ORDERED: POTASSIUM CHLORIDE 10 MEQ TABER PO PRN (23:50)
[2020-08-02] MEDS ORDERED: MAG SULF 2000 MG/WATER PREMIX 50 ML IV PRN (23:50)
[2020-08-03] VITALS: BP 101/62
[2020-08-03 04:00] VITALS: BP 118/71
[2020-08-03] MEDS: PIPERACILLIN/TAZOBACTAM 3.375 GM in DEXTROSE 5% 50 ML IV SCH ×3 (04:13→20:25)
[2020-08-03 06:53] LABS: ANION GAP 13.8 (8-16); CARBON DIOXIDE 21.8 mmol/L (21-32); CREATININE 0.8 mg/dL (0.6-1.3); POTASSIUM 3.6 mmol/L (3.5-5.1)
[2020-08-03 06:57] LABS: BASOPHILS % (AUTO) 0.2 % (0.0-2.0); EOSINOPHILS % (AUTO) 0.2 % (0.0-4.0); HEMATOCRIT 28.1 % (36-52); HEMOGLOBIN 8.9 g/dL (12.0-18.0); LYMPHOCYTES # (AUTO) 0.8 K/uL (2.0-11.5); LYMPHOCYTES % (AUTO) 11.7 % (20.5-51.1); MEAN CORPUSCULAR HEMOGLOBIN 24 pg (27-31); MEAN CORPUSCULAR HGB CONC 32 g/dL (33-37); MEAN CORPUSCULAR VOLUME 75.6 fL (80-94); MONOCYTES # (AUTO) 1.5 K/uL (0.8-1.0); MONOCYTES % (AUTO) 22.1 % (1.7-9.3); NEUTROPHILS # (AUTO) 4.4 K/uL (1.8-7.7); NEUTROPHILS % (AUTO) 65.8 % (42.2-75.2); PLATELET COUNT (AUTO) 337 K/uL (140-450); RED BLOOD CELL COUNT(AUTO) 3.71 MIL/uL (4.20-6.10); WHITE BLOOD COUNT (AUTO) 6.8 K/uL (4.8-10.8)
[2020-08-03 08:00] VITALS: BP 103/66
[2020-08-03] MEDS ORDERED: BUPIVACAINE-MPF 0.25% 30 ML VIAL INJ ONE (08:27)
[2020-08-03] MEDS ORDERED: LIDOCAINE 2% 100 MG/5 ML UJET TP ONE (08:28)
[2020-08-03] MEDS ORDERED: GELATIN SPONGE 100 1 SPG TP ONE (08:29)
[2020-08-03] MEDS ORDERED: ACETAMINOPHEN 325 MG TAB PO PRN (08:45)
[2020-08-03] MEDS ORDERED: ONDANSETRON 4 MG/2 ML VIAL IM/IVP PRN (08:45)
[2020-08-03] MEDS ORDERED: DOCUSATE SODIUM 100 MG GELCAP PO PRN (08:45)
[2020-08-03] MEDS ORDERED: ZOLPIDEM 5 MG TAB PO PRN (08:45)
[2020-08-03] MEDS ORDERED: LORazepam 2 MG/ML VIAL IM/IVP PRN (08:45)
[2020-08-03] MEDS ORDERED: DEXTROSE 50% 50 ML SYR IVP PRN (10:45)
[2020-08-03] MEDS: BLOOD GLUCOSE MONITORING 1 DEV DEV FS SCH ×4 (11:11→20:24)
[2020-08-03 12:00] VITALS: BP 119/70
[2020-08-03] MEDS ORDERED: ROCURONIUM 50 MG/5 ML VIAL IV ONE (12:15)
[2020-08-03] MEDS ORDERED: NEOSTIGMINE 1:1000 10 MG/10 ML VIAL ONE (12:15)
[2020-08-03] MEDS ORDERED: SEVOFLURANE 250 ML BTL INH ONE (12:15)
[2020-08-03] MEDS ORDERED: LIDOCAINE 2% 100 MG/5 ML SYR IVP ONE (12:15)
[2020-08-03] MEDS ORDERED: ETOMIDATE 20 MG/10 ML VIAL IVP ONE (12:15)
[2020-08-03] MEDS ORDERED: DEXAMETHASONE 4 MG/ML VIAL ONE (12:15)
[2020-08-03] MEDS ORDERED: ONDANSETRON 4 MG/2 ML VIAL ONE (12:15)
[2020-08-03] MEDS ORDERED: GLYCOPYRROLATE 0.2 MG/ML VIAL ONE (12:15)
[2020-08-03] MEDS ORDERED: SUCCINYLCHOLINE CHLORIDE 200 MG/10 ML VIAL IVP ONE (12:15)
[2020-08-03] MEDS ORDERED: fentaNYL citrate 0.05 MG/ML VIAL ONE (12:15)
[2020-08-03] MEDS ORDERED: MEPERIDINE 25 MG/ML SYR ONE (12:15)
[2020-08-03] MEDS ORDERED: KETOROLAC 30 MG/ML VIAL ONE (12:15)
[2020-08-03 13:02] LABS: CHOL/HDL RATIO 2.8 (1-4.5); THYROID STIMULATING HORMONE 1.31 uIU/mL (0.34-3.74)
[2020-08-03] MEDS: LACTATED RINGERS 1,000 ML IV SCH ×2 (13:30→21:50)
[2020-08-03] MEDS ORDERED: fentaNYL citrate 0.05 MG/ML VIAL IVP PRN (13:30)
[2020-08-03] MEDS ORDERED: ONDANSETRON 4 MG/2 ML VIAL IVP PRN (13:30)
[2020-08-03] MEDS ORDERED: MEPERIDINE 25 MG/ML SYR IVP PRN (13:30)
[2020-08-03] MEDS ORDERED: BLOOD GLUCOSE MONITORING 1 DEV DEV FS SCH (13:30)
[2020-08-03 16:00] VITALS: BP 114/68
[2020-08-03] MEDS: MORPHINE SULFATE 2 MG/ML SYR IVP PRN ×2 (16:09→20:41)
[2020-08-03] MEDS: INSULIN LISPRO SLIDING SCALE 100 UNITS/ML VIAL SUBQ PRN ×2 (16:17→20:37)
[2020-08-03 20:00] VITALS: BP 125/69
[2020-08-03 21:09] LABS: BARBITURATE, URINE NEGATIVE ng/ml (NEG <=200); BENZODIAZEPINE, URINE NEGATIVE ng/mL (NEG <=200); CANNABINOID, URINE NEGATIVE ng/mL (NEG <=50); COCAINE, URINE NEGATIVE ng/mL (NEG <=300); OPIATE, URINE POSITIVE ng/mL (NEG <=2000); PHENCYCLIDINE SCREEN,URINE NEGATIVE ng/mL (NEG <=25)
[2020-08-04] VITALS: BP 115/68
[2020-08-04 04:00] VITALS: BP 125/73
[2020-08-04] MEDS: LACTATED RINGERS 1,000 ML IV SCH (04:27)
[2020-08-04] MEDS: PIPERACILLIN/TAZOBACTAM 3.375 GM in DEXTROSE 5% 50 ML IV SCH ×3 (05:32→22:10)
[2020-08-04] MEDS: MORPHINE SULFATE 4 MG/ML SYR IVP PRN ×3 (06:28→18:50)
[2020-08-04] MEDS: BLOOD GLUCOSE MONITORING 1 DEV DEV FS SCH ×4 (06:32→20:25)
[2020-08-04] MEDS: INSULIN LISPRO SLIDING SCALE 100 UNITS/ML VIAL SUBQ PRN ×4 (06:34→20:33)
[2020-08-04 06:38] LABS: BASOPHILS % (AUTO) 0.1 % (0.0-2.0); HEMOGLOBIN 8.7 g/dL (12.0-18.0); LYMPHOCYTES # (AUTO) 0.9 K/uL (2.0-11.5); MEAN CORPUSCULAR HEMOGLOBIN 24 pg (27-31); MEAN CORPUSCULAR HGB CONC 32 g/dL (33-37); MONOCYTES # (AUTO) 1.4 K/uL (0.8-1.0); MONOCYTES % (AUTO) 15.2 % (1.7-9.3); NEUTROPHILS # (AUTO) 6.8 K/uL (1.8-7.7); NEUTROPHILS % (AUTO) 74.7 % (42.2-75.2); PLATELET COUNT (AUTO) 335 K/uL (140-450); RED BLOOD CELL COUNT(AUTO) 3.64 MIL/uL (4.20-6.10); RED CELL DISTRIBUTION WIDTH 23.5 % (11.6-13.7); WHITE BLOOD COUNT (AUTO) 9.1 K/uL (4.8-10.8)
[2020-08-04 06:39] LABS: MAGNESIUM 2.1 mg/dL (1.8-2.4)
[2020-08-04 06:40] LABS: ANION GAP 14.9 (8-16); CREATININE 0.8 mg/dL (0.6-1.3); POTASSIUM 3.9 mmol/L (3.5-5.1)
[2020-08-04 08:00] VITALS: BP 95/58
[2020-08-04 08:08] LABS: T4 (THYROXINE) 7.3 ug/dL (4.5-12.0)
[2020-08-04 12:00] VITALS: BP 110/68
[2020-08-04 16:00] VITALS: BP 116/63
[2020-08-04 20:00] VITALS: BP 129/70
[2020-08-04] MEDS: DEXT 5% / NACL 0.45% 1,000 ML IV SCH (22:10)
[2020-08-05 04:00] VITALS: BP 121/86
[2020-08-05] MEDS: PIPERACILLIN/TAZOBACTAM 3.375 GM in DEXTROSE 5% 50 ML IV SCH ×3 (04:32→20:56)
[2020-08-05] MEDS: BLOOD GLUCOSE MONITORING 1 DEV DEV FS SCH ×4 (05:57→20:55)
[2020-08-05] MEDS: INSULIN LISPRO SLIDING SCALE 100 UNITS/ML VIAL SUBQ PRN ×4 (05:59→21:04)
[2020-08-05 06:12] LABS: CARBON DIOXIDE 22.9 mmol/L (21-32); POTASSIUM 3.9 mmol/L (3.5-5.1)
[2020-08-05 06:21] LABS: MAGNESIUM 1.9 mg/dL (1.8-2.4); PHOSPHORUS 4.4 mg/dL (2.5-4.9)
[2020-08-05] MEDS: MORPHINE SULFATE 2 MG/ML SYR IVP PRN ×2 (06:22→15:26)
[2020-08-05 06:32] LABS: BASOPHILS % (AUTO) 0.3 % (0.0-2.0); EOSINOPHILS % (AUTO) 0.4 % (0.0-4.0); HEMATOCRIT 31.1 % (36-52); HEMOGLOBIN 9.7 g/dL (12.0-18.0); LYMPHOCYTES # (AUTO) 2.2 K/uL (2.0-11.5); LYMPHOCYTES % (AUTO) 23.2 % (20.5-51.1); MEAN CORPUSCULAR HEMOGLOBIN 24 pg (27-31); MEAN CORPUSCULAR HGB CONC 31 g/dL (33-37); MEAN CORPUSCULAR VOLUME 75.4 fL (80-94); MONOCYTES # (AUTO) 1.5 K/uL (0.8-1.0); MONOCYTES % (AUTO) 16.1 % (1.7-9.3); NEUTROPHILS # (AUTO) 5.6 K/uL (1.8-7.7); PLATELET COUNT (AUTO) 494 K/uL (140-450); RED BLOOD CELL COUNT(AUTO) 4.12 MIL/uL (4.20-6.10); RED CELL DISTRIBUTION WIDTH 24.2 % (11.6-13.7); WHITE BLOOD COUNT (AUTO) 9.3 K/uL (4.8-10.8)
[2020-08-05 08:00] VITALS: BP 115/77
[2020-08-05] MEDS ORDERED: LIDOCAINE 1% 500 MG/50 ML VIAL ONE (09:00)
[2020-08-05] MEDS ORDERED: BUPIVACAINE-MPF/EPI 0.25% 30 ML VIAL INJ ONE (09:00)
[2020-08-05] MEDS ORDERED: PROPOFOL 200 MG/20 ML VIAL IV ONE ×3 (09:06→10:40)
[2020-08-05] MEDS ORDERED: SUCCINYLCHOLINE CHLORIDE 200 MG/10 ML VIAL IVP ONE ×3 (09:06→10:40)
[2020-08-05] MEDS ORDERED: HYDROmorphone PFS 2 MG/ML SYR ONE ×2 (10:40→10:50)
[2020-08-05] MEDS ORDERED: ROCURONIUM 50 MG/5 ML VIAL IV ONE ×3 (10:40→10:48)
[2020-08-05] MEDS ORDERED: KETOROLAC 30 MG/ML VIAL ONE ×3 (10:40→11:56)
[2020-08-05] MEDS ORDERED: fentaNYL citrate 0.05 MG/ML VIAL ONE ×3 (10:40→10:41)
[2020-08-05] MEDS ORDERED: ONDANSETRON 4 MG/2 ML VIAL ONE ×3 (10:40→11:56)
[2020-08-05] MEDS ORDERED: SUGAMMADEX SODIUM 200 MG/2 ML VIAL IV ONE ×3 (10:40→11:57)
[2020-08-05] MEDS ORDERED: HYDROmorphone 1 MG/ML AMP ONE (10:40)
[2020-08-05] MEDS ORDERED: ONDANSETRON 4 MG/2 ML VIAL IVP PRN (10:55)
[2020-08-05] MEDS ORDERED: HYDROmorphone 1 MG/ML AMP IVP PRN (10:55)
[2020-08-05] MEDS: DEXT 5% / NACL 0.45% 1,000 ML IV SCH ×2 (13:45→17:10)
[2020-08-05 17:12] VITALS: BP 139/88
[2020-08-05 20:00] VITALS: BP 149/95
[2020-08-05] MEDS: MORPHINE SULFATE 4 MG/ML SYR IVP PRN (20:41)
[2020-08-06] MEDS: MORPHINE SULFATE 4 MG/ML SYR IVP PRN ×6 (01:42→22:20)
[2020-08-06] MEDS: DEXT 5% / NACL 0.45% 1,000 ML IV SCH ×3 (03:14→23:10)
[2020-08-06 04:00] VITALS: BP 136/76
[2020-08-06] MEDS: PIPERACILLIN/TAZOBACTAM 3.375 GM in DEXTROSE 5% 50 ML IV SCH ×3 (05:29→20:41)
[2020-08-06 06:43] LABS: ANION GAP 10.6 (8-16); CARBON DIOXIDE 25.4 mmol/L (21-32); CREATININE 0.8 mg/dL (0.6-1.3)
[2020-08-06] MEDS: BLOOD GLUCOSE MONITORING 1 DEV DEV FS SCH ×4 (06:43→20:46)
[2020-08-06] MEDS: INSULIN LISPRO SLIDING SCALE 100 UNITS/ML VIAL SUBQ PRN ×4 (06:47→22:24)
[2020-08-06 06:55] LABS: MAGNESIUM 1.9 mg/dL (1.8-2.4); PHOSPHORUS 3.6 mg/dL (2.5-4.9)
[2020-08-06 07:18] LABS: BASOPHILS % (AUTO) 0.3 % (0.0-2.0); EOSINOPHILS % (AUTO) 0.2 % (0.0-4.0); HEMATOCRIT 27.6 % (36-52); HEMOGLOBIN 8.9 g/dL (12.0-18.0); LYMPHOCYTES # (AUTO) 1.4 K/uL (2.0-11.5); LYMPHOCYTES % (AUTO) 16.5 % (20.5-51.1); MEAN CORPUSCULAR HEMOGLOBIN 24 pg (27-31); MEAN CORPUSCULAR HGB CONC 32 g/dL (33-37); MEAN CORPUSCULAR VOLUME 73.9 fL (80-94); MONOCYTES # (AUTO) 1.1 K/uL (0.8-1.0); MONOCYTES % (AUTO) 13.2 % (1.7-9.3); NEUTROPHILS % (AUTO) 69.8 % (42.2-75.2); PLATELET COUNT (AUTO) 414 K/uL (140-450); RED BLOOD CELL COUNT(AUTO) 3.73 MIL/uL (4.20-6.10); RED CELL DISTRIBUTION WIDTH 23.8 % (11.6-13.7); WHITE BLOOD COUNT (AUTO) 8.6 K/uL (4.8-10.8)
[2020-08-06 08:00] VITALS: BP 158/90
[2020-08-06] MEDS ORDERED: HYDROmorphone 1 MG/ML AMP IVP PRN ×2 (10:25→20:30)
[2020-08-06 16:15] VITALS: BP 140/86
[2020-08-06 20:00] VITALS: BP 169/98
[2020-08-06] MEDS ORDERED: HYDROmorphone 1 MG/ML AMP IVP SCH (20:18)
[2020-08-06] MEDS: NACL 0.9% 1,000 ML IV SCH (20:45)
[2020-08-07] MEDS: MORPHINE SULFATE 4 MG/ML SYR IVP PRN ×4 (02:41→21:50)
[2020-08-07 04:00] VITALS: BP 160/109
[2020-08-07] MEDS: PIPERACILLIN/TAZOBACTAM 3.375 GM in DEXTROSE 5% 50 ML IV SCH (04:48)
[2020-08-07] MEDS: NACL 0.9% 1,000 ML IV SCH ×2 (04:55→06:00)
[2020-08-07] MEDS: BLOOD GLUCOSE MONITORING 1 DEV DEV FS SCH ×4 (05:21→21:13)
[2020-08-07] MEDS: INSULIN LISPRO SLIDING SCALE 100 UNITS/ML VIAL SUBQ PRN ×4 (06:23→21:32)
[2020-08-07 06:39] LABS: BASOPHILS % (AUTO) 0.3 % (0.0-2.0); EOSINOPHILS % (AUTO) 0.4 % (0.0-4.0); HEMATOCRIT 31.9 % (36-52); HEMOGLOBIN 10.1 g/dL (12.0-18.0); LYMPHOCYTES # (AUTO) 1.5 K/uL (2.0-11.5); MEAN CORPUSCULAR HEMOGLOBIN 24 pg (27-31); MEAN CORPUSCULAR HGB CONC 32 g/dL (33-37); MEAN CORPUSCULAR VOLUME 74.8 fL (80-94); MONOCYTES # (AUTO) 0.7 K/uL (0.8-1.0); MONOCYTES % (AUTO) 8.6 % (1.7-9.3); NEUTROPHILS # (AUTO) 5.9 K/uL (1.8-7.7); NEUTROPHILS % (AUTO) 71.9 % (42.2-75.2); PLATELET COUNT (AUTO) 511 K/uL (140-450); RED BLOOD CELL COUNT(AUTO) 4.27 MIL/uL (4.20-6.10); RED CELL DISTRIBUTION WIDTH 23.9 % (11.6-13.7); WHITE BLOOD COUNT (AUTO) 8.2 K/uL (4.8-10.8)
[2020-08-07 06:51] LABS: ANION GAP 11.3 (8-16); CARBON DIOXIDE 25.2 mmol/L (21-32); CREATININE 0.7 mg/dL (0.6-1.3); POTASSIUM 3.5 mmol/L (3.5-5.1)
[2020-08-07 06:57] LABS: MAGNESIUM 1.9 mg/dL (1.8-2.4); PHOSPHORUS 3.2 mg/dL (2.5-4.9)
[2020-08-07 07:18] LABS: LYMPHOCYTES % (AUTO) 18.8 % (20.5-51.1)
[2020-08-07 08:00] VITALS: BP 130/106
[2020-08-07] MEDS: DEXT 5% / NACL 0.45% 1,000 ML IV SCH ×2 (09:10→18:15)
[2020-08-07 16:00] VITALS: BP 122/81
[2020-08-07 20:00] VITALS: BP 135/91
[2020-08-08] MEDS: NACL 0.9% 1,000 ML IV SCH ×3 (00:55→20:30)
[2020-08-08 04:00] VITALS: BP 128/93
[2020-08-08] MEDS: DEXT 5% / NACL 0.45% 1,000 ML IV SCH ×3 (05:10→20:40)
[2020-08-08] MEDS: BLOOD GLUCOSE MONITORING 1 DEV DEV FS SCH ×4 (06:10→20:05)
[2020-08-08 08:00] VITALS: BP 142/99
[2020-08-08] MEDS: MORPHINE SULFATE 4 MG/ML SYR IVP PRN ×2 (09:50→18:57)
[2020-08-08 10:40] LABS: BASOPHILS % (AUTO) 0.5 % (0.0-2.0); EOSINOPHILS # (AUTO) 0.1 K/uL (0-0.4); EOSINOPHILS % (AUTO) 1.2 % (0.0-4.0); HEMATOCRIT 31.2 % (36-52); HEMOGLOBIN 9.7 g/dL (12.0-18.0); LYMPHOCYTES # (AUTO) 1.5 K/uL (2.0-11.5); LYMPHOCYTES % (AUTO) 22.8 % (20.5-51.1); MEAN CORPUSCULAR HEMOGLOBIN 24 pg (27-31); MEAN CORPUSCULAR HGB CONC 31 g/dL (33-37); MEAN CORPUSCULAR VOLUME 75.6 fL (80-94); MONOCYTES # (AUTO) 0.6 K/uL (0.8-1.0); MONOCYTES % (AUTO) 9.4 % (1.7-9.3); NEUTROPHILS # (AUTO) 4.3 K/uL (1.8-7.7); NEUTROPHILS % (AUTO) 66.1 % (42.2-75.2); PLATELET COUNT (AUTO) 481 K/uL (140-450); RED BLOOD CELL COUNT(AUTO) 4.13 MIL/uL (4.20-6.10); RED CELL DISTRIBUTION WIDTH 24.1 % (11.6-13.7); WHITE BLOOD COUNT (AUTO) 6.5 K/uL (4.8-10.8)
[2020-08-08 11:07] LABS: ANION GAP 17.8 (8-16); CARBON DIOXIDE 20.2 mmol/L (21-32); CREATININE 0.8 mg/dL (0.6-1.3)
[2020-08-08 11:11] LABS: MAGNESIUM 1.9 mg/dL (1.8-2.4); PHOSPHORUS 2.6 mg/dL (2.5-4.9)
[2020-08-08] MEDS: INSULIN LISPRO SLIDING SCALE 100 UNITS/ML VIAL SUBQ PRN ×2 (12:30→17:43)
[2020-08-08 16:00] VITALS: BP 121/88
[2020-08-08 20:00] VITALS: BP 114/86
[2020-08-09 04:00] VITALS: BP 132/91
[2020-08-09] MEDS: NACL 0.9% 1,000 ML IV SCH (06:31)
[2020-08-09] MEDS: BLOOD GLUCOSE MONITORING 1 DEV DEV FS SCH ×2 (06:31→12:09)
[2020-08-09] MEDS: MORPHINE SULFATE 4 MG/ML SYR IVP PRN (06:33)
[2020-08-09 06:39] LABS: ANION GAP 11.2 (8-16); BASOPHILS % (AUTO) 0.4 % (0.0-2.0); CARBON DIOXIDE 24.3 mmol/L (21-32); CREATININE 0.7 mg/dL (0.6-1.3); EOSINOPHILS # (AUTO) 0.1 K/uL (0-0.4); EOSINOPHILS % (AUTO) 1.2 % (0.0-4.0); HEMATOCRIT 29.9 % (36-52); HEMOGLOBIN 9.4 g/dL (12.0-18.0); LYMPHOCYTES % (AUTO) 23.8 % (20.5-51.1); MEAN CORPUSCULAR HEMOGLOBIN 24 pg (27-31); MEAN CORPUSCULAR HGB CONC 31 g/dL (33-37); MEAN CORPUSCULAR VOLUME 75.3 fL (80-94); MONOCYTES # (AUTO) 0.8 K/uL (0.8-1.0); MONOCYTES % (AUTO) 9.7 % (1.7-9.3); NEUTROPHILS # (AUTO) 5.3 K/uL (1.8-7.7); NEUTROPHILS % (AUTO) 64.9 % (42.2-75.2); PLATELET COUNT (AUTO) 431 K/uL (140-450); POTASSIUM 3.5 mmol/L (3.5-5.1); RED BLOOD CELL COUNT(AUTO) 3.97 MIL/uL (4.20-6.10); RED CELL DISTRIBUTION WIDTH 23.9 % (11.6-13.7); WHITE BLOOD COUNT (AUTO) 8.2 K/uL (4.8-10.8)
[2020-08-09 06:41] LABS: MAGNESIUM 2.1 mg/dL (1.8-2.4); PHOSPHORUS 3.1 mg/dL (2.5-4.9)
[2020-08-09] MEDS ORDERED: OMEP40EC24 PO (11:53)
[2020-08-09] MEDS: INSULIN LISPRO SLIDING SCALE 100 UNITS/ML VIAL SUBQ PRN (12:11)
[2020-08-09] MEDS: MORPHINE SULFATE 2 MG/ML SYR IVP PRN (14:03)
[2020-08-09 14:40] VITALS: BP 127/75
== END 2020-08-09 15:10 | disposition home health service (06) | DRG 710 ==
LOC: MED 12:20 → MTU 16:21
PROC: 0D9P0ZZ Drainage of Rectum, Open Approach (ICD-10-PCS; principal; 2020-08-03 12:00)
PROC: 0D1E4Z4 Bypass Large Intestine to Cutaneous, Percutaneous Endoscopic Approach (ICD-10-PCS; 2020-08-05)
DX: A41.9 Sepsis, unspecified organism (principal); E11.00 Type 2 diabetes mellitus with hyperosmolarity without nonketotic hyperglycemic-hyperosmolar coma (NKHHC); E43 Unspecified severe protein-calorie malnutrition; C20 Malignant neoplasm of rectum; E87.1 Hypo-osmolality and hyponatremia; E83.51 Hypocalcemia; K62.4 Stenosis of anus and rectum; K61.1 Rectal abscess; D63.8 Anemia in other chronic diseases classified elsewhere; K59.00 Constipation, unspecified; Z20.822 Contact with and (suspected) exposure to COVID-19; J45.909 Unspecified asthma, uncomplicated; R91.1 Solitary pulmonary nodule; Z79.84 Long term (current) use of oral hypoglycemic drugs; Z79.899 Other long term (current) drug therapy; Z85.038 Personal history of other malignant neoplasm of large intestine; Z68.22 Body mass index [BMI] 22.0-22.9, adult
CPT/HCPCS: 36415; 71045; 80048; 80053; 80305; 81003; 82150; 82948; 83036; 83605; 83690; 83735; 83880; 84100; 84134; 84436; 84443; 84484; 85025; 85610; 85730; 87040; 87081; 87086; 93005; 96361; 96365; 96375; 97163-GP; 99285; A4371; J0330; J0694; J1100; J1170; J1644; J1815; J1885; J2001; J2175; J2270; J2405; J2543; J2704; J2710; J3010; J3490; J7060; J7120; Q9967

== ENCOUNTER 2020-08-20 00:32 | Inpatient (IN) | payer BC, SELFPAY ==
[~2020-08-20] VITALS: Ht 167.6 cm; Wt 60.8 kg
[~2020-08-20 00:32] MED LIST changes: -DOCU-474 PO; +OMEP40EC24 PO
--- NOTE | 2020-08-20 00:43 | NUR ---
PT WAS ASSISTED INTO WHEELCHAIR FROM CAR TO WHEELCHAIR IN AMBULANCE BAY WITH MAXIMUM ASSIST BY YESICA RUSHING
[2020-08-20 00:47] VITALS: BP 156/98
[2020-08-20] MEDS ORDERED: ONDANSETRON 4 MG/2 ML VIAL ONE (00:49)
[2020-08-20] MEDS ORDERED: MORPHINE SULFATE 4 MG/ML SYR ONE (00:50)
[2020-08-20] MEDS ORDERED: ONDANSETRON 4 MG/2 ML VIAL IVP ONE ×2 (01:00→04:40)
[2020-08-20] MEDS ORDERED: MORPHINE SULFATE 4 MG/ML SYR IVP ONE (01:00)
[2020-08-20] MEDS ORDERED: KETAMINE 10 MG/ML UD SYR **ER IVP ONE (01:10)
--- NOTE | 2020-08-20 01:30 | NUR ---
54 Y/O MALE, BIB SON FROM HOME D/T UNCONTROLLED ABDOMINAL PAIN X1DAY. PATIENT REPORTS EPISODE OF N/V X1. DENIES TAKING ANY PAIN MEDICATION PRIOR TO ARRIVING. PMHX: COLON CA, DM2 ALLERGY: NKA
[2020-08-20 01:44] LABS: MEAN CORPUSCULAR HEMOGLOBIN 25 pg (27-31)
[2020-08-20 01:52] LABS: BASOPHILS % (AUTO) 0.5 % (0.0-2.0); EOSINOPHILS % (AUTO) 0.2 % (0.0-4.0); HEMOGLOBIN 9.8 g/dL (12.0-18.0); LYMPHOCYTES # (AUTO) 1.1 K/uL (2.0-11.5); LYMPHOCYTES % (AUTO) 13.6 % (20.5-51.1); MEAN CORPUSCULAR HGB CONC 32 g/dL (33-37); MEAN CORPUSCULAR VOLUME 77.7 fL (80-94); MONOCYTES # (AUTO) 0.5 K/uL (0.8-1.0); NEUTROPHILS # (AUTO) 6.5 K/uL (1.8-7.7); NEUTROPHILS % (AUTO) 79.7 % (42.2-75.2); PLATELET COUNT (AUTO) 367 K/uL (140-450); WHITE BLOOD COUNT (AUTO) 8.1 K/uL (4.8-10.8)
[2020-08-20 02:13] LABS: ANION GAP 15.7 (8-16); CARBON DIOXIDE 23.3 mmol/L (21-32); CREATININE 0.7 mg/dL (0.6-1.3); TOTAL BILIRUBIN 0.3 mg/dL (0.0-1.0)
[2020-08-20 02:42] LABS: APPEARANCE,URINE CLEAR (CLEAR); BILIRUBIN,URINE NEGATIVE (NEGATIVE); BLOOD, URINE NEGATIVE (NEGATIVE); COLOR,URINE YELLOW (YELLOW); LEUKOCYTE ESTERASE ,URINE NEGATIVE (NEGATIVE); NITRITE, URINE NEGATIVE (NEGATIVE); UGLUCOSE 2+ (NEGATIVE)
[2020-08-20 02:53] LABS: BARBITURATE, URINE NEGATIVE ng/ml (NEG <=200); BENZODIAZEPINE, URINE NEGATIVE ng/mL (NEG <=200); CANNABINOID, URINE NEGATIVE ng/mL (NEG <=50); COCAINE, URINE NEGATIVE ng/mL (NEG <=300); OPIATE, URINE POSITIVE ng/mL (NEG <=2000); PHENCYCLIDINE SCREEN,URINE NEGATIVE ng/mL (NEG <=25)
[2020-08-20 03:14] LABS: RBC,URINE 0-5 /HPF (0-5); WBC,URINE NONE SEEN /HPF (0-5)
[2020-08-20] MEDS ORDERED: HYDROmorphone 1 MG/ML AMP IVP ONE (03:20)
[2020-08-20] MEDS ORDERED: PIPERACILLIN/TAZOBACTAM 3.375 GM in DEXTROSE 5% 50 ML IV ONE (03:40)
[2020-08-20] MEDS ORDERED: NACL 0.9% 2,500 ML IV ONE (03:40)
--- NOTE | 2020-08-20 04:23 | NUR ---
DR ODEN CONTACTED AT 0410 FOR PENDING ADMIT
[2020-08-20] MEDS ORDERED: LORazepam 2 MG/ML VIAL IVP ONE (04:40)
[2020-08-20] MEDS ORDERED: HYDROmorphone PFS 2 MG/ML SYR IVP ONE (04:40)
[2020-08-20] MEDS ORDERED: LORazepam 2 MG/ML VIAL ONE (04:41)
[2020-08-20] MEDS ORDERED: PIPERACILLIN/TAZOBACTAM 3.375 GM VIAL IV ONE (04:43)
--- NOTE | 2020-08-20 06:00 | NUR ---
PATIENT NOW FINALLY RESTING COMFORTABLY IN BED, ASLEEP. EASILY AROUSABLE TO VERBAL AND TACTILE STIUMILI. REMAINS AT BEDSIDE. WILL CONTINUE TO MONITOR.
[2020-08-20] MEDS ORDERED: METF1000 PO (06:49)
--- NOTE | 2020-08-20 07:12 | NUR ---
REPORT GIVEN TO ABDIRASHID BILLINGSLEY FOR CONTINUITY OF CARE.
--- NOTE | 2020-08-20 07:47 | NUR ---
Patient will be admitted to care of Dr. Valentin. Admited to TELE. Will go to room 105B. Belongings list completed. Report to Maribel.
--- NOTE | 2020-08-20 07:50 | NUR ---
REPORT RECEIVED FROM ER. AWAITING CODE STATUS
[2020-08-20 08:00] VITALS: BP 169/107
--- NOTE | 2020-08-20 08:05 | NUR ---
PATIENT ARRIVED VIA GURNEY FROM ED. PT WAS ABLE TO TRANSFER BEDS INDEPENDENTLY. PT RESTING IN BED.. PT ORIENTED TO ROOM AND HOSPITAL POLICY. NO S/S OF DISTRESS AT THIS TIME. ALL SAFETY MEASURES IN PLACE.
[2020-08-20] MEDS ORDERED: DEXTROSE 50% 50 ML SYR IVP PRN (08:50)
[2020-08-20] MEDS ORDERED: hydrALAZINE 20 MG/ML VIAL IVP PRN (08:55)
[2020-08-20] MEDS: POLYETHYLENE GLYCOL 17 GM/PKT PO SCH (09:00)
--- NOTE | 2020-08-20 10:13 | NUR ---
MD AT BEDSIDE WITH FAMILY.
[2020-08-20] MEDS ORDERED: METOPROLOL 5 MG/5 ML VIAL IVP PRN (10:15)
[2020-08-20] MEDS: PANTOPRAZOLE 40 MG INJ VIAL IVP SCH (10:18)
[2020-08-20] MEDS: HYDROmorphone 1 MG/ML AMP IVP PRN ×4 (10:18→21:46)
--- NOTE | 2020-08-20 10:21 | NUR ---
PT COMPLAINS OF 10/10 PAIN. PRN MEDICATION GIVEN PER MD ORDERS. PT AND FAMILY EDUCATED. THEY VERBALIZED UNDERSTANDING PT TOLERATED WELL.
--- NOTE | 2020-08-20 10:48 | NUR ---
PATIENT HAS BEEN SCREENED AND CATEGORIZED MODERATE NUTRITION RISK. PATIENT WILL BE SEEN WITHIN 3-5 DAYS OF ADMISSION. 08/22/20-08/24/20 SHELLI DURANT MS, RDN
[2020-08-20] MEDS ORDERED: ONDANSETRON 4 MG/2 ML VIAL IVP PRN (10:55)
[2020-08-20] MEDS: KETOROLAC 30 MG/ML VIAL IVP PRN ×2 (11:03→16:07)
--- NOTE | 2020-08-20 11:20 | NUR ---
PT HAD AN EPISODE OF NAUSEA. PRN MEDICATION GIVEN
[2020-08-20] MEDS: BLOOD GLUCOSE MONITORING 1 DEV DEV FS SCH ×3 (11:59→20:33)
[2020-08-20 12:00] VITALS: BP 165/107
[2020-08-20] MEDS: INSULIN LISPRO SLIDING SCALE 100 UNITS/ML VIAL SUBQ PRN ×2 (12:14→17:53)
--- NOTE | 2020-08-20 12:20 | NUR ---
PTS FLUIDS CHANGED. PT DENIES PAIN AT THIS TIME. FAMILY AT BEDSIDE
[2020-08-20 13:27] LABS: MAGNESIUM 1.8 mg/dL (1.8-2.4); PHOSPHORUS 3.1 mg/dL (2.5-4.9)
--- NOTE | 2020-08-20 14:13 | NUR ---
PT COMPLAINS OF 10/10 PAIN. PRN MEDICATION GIVEN PER MD ORDER. PATIENT EDUCATED AND VERBALIZED UNDERSTANDING . NO S/SX OF DISTRESS. CALL LIGHT WITHIN REACH NO SAFETY MEASURES ARE IN PLACE.
[2020-08-20 16:00] VITALS: BP 135/93
--- NOTE | 2020-08-20 16:00 | NUR ---
PT RESTING IN BED BG ASSESSED. PT COMPLAINS OF PAIN PRN MEDICATION GIVEN .
[2020-08-20] MEDS: DEXT 5% /NACL 0.9% 1,000 ML IV SCH (16:07)
--- NOTE | 2020-08-20 17:00 | NUR ---
iNSULING GIVEN PER MD ORDER. PT EDUCATED TOLERATED WELL. FAMILY AT BEDSIDE
--- NOTE | 2020-08-20 18:00 | NUR ---
PT STATES HE IS HUNGRY. RADIOLOGY CALLED THEY STATED SBO FOLLOWTHROUGH IS COMPLETE . MD AWARE AWAITING RESULTS TO CONTINUE DIET. PT EDUCATED PT VERBALIZED UNDERSTANDING
--- NOTE | 2020-08-20 19:20 | NUR ---
PT ENDORSED TO COPPER PLATE PRINTER NURSE FOR CONTINUITY OF CARE. PT STABLE
--- NOTE | 2020-08-20 19:30 | NUR ---
RECEIVED PT IN STABLE CONDITION FROM AM NURSE. PT ON TELE MONITOR -ST. AWAKE,ALERT AND ORIENTED X4. DENIES PAIN AT TIS TIME. FAMILY AT BEDSIDE. WITH IVF INFUSING WELL ON HE LT AC G#20. CLEAR AND PATENT. PLAN OF CARE DISCUSSED AND VERBALIZED UNDERSTANDING. FREQ ROUNDS NEEDED. BED ON LOWEST POSITION. SIDE RAILS UP X2. CALL LIGHT AND URINAL WITHIN REACH. WILL CONTINUE TO MONITOR.
[2020-08-20 20:00] VITALS: BP 131/93
[2020-08-20] MEDS: metroNIDAZOLE 500 MG/NS PREMIX 100 ML IV SCH (20:24)
--- NOTE | 2020-08-20 23:34 | NUR ---
DR. ESCOBAR MADE AWARE ABOUT RESULTLT OF SMALL BOWEL SERIES WITH MID SMALL BOWEL OBSTRUCTION. HE ORDERED TO HAVE NGT TO INTERMITTENT SUCTION.
[2020-08-21] VITALS: BP 125/80
--- NOTE | 2020-08-21 01:24 | NUR ---
TRIED TO INSERT NGT .THE FIRST TIME F 16. HE HAD A HARD TIME. HE ALREADY REFUSED. SO DR. ESCOBAR MADE AWARE. HE SAID TO EXPLAINED TO HIM THE RISK OF PERFORATION AND WHICH I DID. HE CONSENTED ON TRYING AGAIN WITH SMALLER F14, BUT JUST MERELY STARTING TO PUT IT IN THE NOSTRIL AND HE SAID HE CAN'T DO IT. HE AGAIN REFUSED TO CONTINUE THE PROCEDURE.
--- NOTE | 2020-08-21 02:30 | NUR ---
MADE ROUNDS . PT SLEEPING NO S/S OF ANY DISCOMFORT NOTED.
[2020-08-21 04:00] VITALS: BP 122/81
[2020-08-21] MEDS: metroNIDAZOLE 500 MG/NS PREMIX 100 ML IV SCH ×3 (04:36→20:12)
--- NOTE | 2020-08-21 05:00 | NUR ---
COLOSTOMY BAG FULL OF FORMED STOOL. OBTAINED AROUND 150 ML. BAG NEEDS TO BE CHANGED BUT PT REFUSED . HE SAID HE WILL ASK HIS WOFE TO BRING SOME FROM HOME. WILL ENDORSE TO AM NURSE.
[2020-08-21] MEDS: BLOOD GLUCOSE MONITORING 1 DEV DEV FS SCH ×4 (05:50→20:06)
--- NOTE | 2020-08-21 06:00 | NUR ---
LATEST BLOOS SUGAR CHECKED THIS AM ,RESULT 119.
[2020-08-21 06:38] LABS: BASOPHILS % (AUTO) 0.5 % (0.0-2.0); EOSINOPHILS # (AUTO) 0.1 K/uL (0-0.4); EOSINOPHILS % (AUTO) 1.2 % (0.0-4.0); HEMATOCRIT 29.5 % (36-52); HEMOGLOBIN 9.3 g/dL (12.0-18.0); LYMPHOCYTES # (AUTO) 1.4 K/uL (2.0-11.5); LYMPHOCYTES % (AUTO) 22.2 % (20.5-51.1); MEAN CORPUSCULAR HEMOGLOBIN 25 pg (27-31); MEAN CORPUSCULAR HGB CONC 32 g/dL (33-37); MEAN CORPUSCULAR VOLUME 77.8 fL (80-94); MONOCYTES # (AUTO) 0.7 K/uL (0.8-1.0); MONOCYTES % (AUTO) 11.7 % (1.7-9.3); NEUTROPHILS % (AUTO) 64.4 % (42.2-75.2); PLATELET COUNT (AUTO) 362 K/uL (140-450); RED BLOOD CELL COUNT(AUTO) 3.79 MIL/uL (4.20-6.10); RED CELL DISTRIBUTION WIDTH 25.3 % (11.6-13.7); WHITE BLOOD COUNT (AUTO) 6.3 K/uL (4.8-10.8)
[2020-08-21 06:55] LABS: CARBON DIOXIDE 24.3 mmol/L (21-32); CREATININE 0.6 mg/dL (0.6-1.3); POTASSIUM 3.3 mmol/L (3.5-5.1)
--- NOTE | 2020-08-21 07:09 | NUR ---
ENDORSED PT IN STABLE CONDITION TO AM NURSE. FOR CONTINUITY OF CARE.
--- NOTE | 2020-08-21 07:17 | NUR ---
PT RECEIVED FROM CARPENTER CRADLE AND DOLLY NURSE. PT STILL REFUSES NG TUBE PLACEMENT. NOS/S OF DISTRESS AT THIS TIME ALL SAFETY MEASURES ARE IN PLACE.
--- NOTE | 2020-08-21 07:44 | NUR ---
MD ART AT BEDSIDE. PER OKAY TO HAVE LIQUIDS IN THE MORNING AND ADVANCE TOLERATED,
[2020-08-21 08:00] VITALS: BP 132/83
[2020-08-21] MEDS: PANTOPRAZOLE 40 MG INJ VIAL IVP SCH (08:21)
[2020-08-21] MEDS: DEXT 5% /NACL 0.9% 1,000 ML IV SCH (08:21)
[2020-08-21] MEDS: POLYETHYLENE GLYCOL 17 GM/PKT PO SCH (08:21)
--- NOTE | 2020-08-21 08:25 | NUR ---
PTS COLOSTOMY BAG IS FULL. PT STATES HE PREFERS THE ONES FROM HOME.
--- NOTE | 2020-08-21 09:10 | NUR ---
MEDICATIONS GIVEN PER MD ORDER. PT EDUCATED VERBALIZED UNDERSTANDING. NO S/SX OF DISTRESS AT THIS TIME. PT TOLERATED WELL.
--- NOTE | 2020-08-21 09:59 | NUR ---
COLOSTOMY BAG CHANGED . PT HAD FULL BAG
--- NOTE | 2020-08-21 10:16 | NUR ---
PT TOLERATED BREAKFAST, DENIES N/V NO PAIN AT THIS TIME.
--- NOTE | 2020-08-21 10:46 | NUR ---
PT ROUNDED ON FAMILY AT BEDSIDE. PT DENIES PAIN AT THIS TIME
--- NOTE | 2020-08-21 11:07 | NUR ---
PT ROUNDED ON. PT HAS EYES CLOSED. EASY TO AROUSE
[2020-08-21 12:00] VITALS: BP 117/74
--- NOTE | 2020-08-21 12:09 | NUR ---
PT'S COLOSTOMY BAG CHANGED. PT TOLERATED WELL. PT AND FAMILY EDUCATED ON PROCESS. PTS ABSCESS WOUND DRESSING CHANGED
--- NOTE | 2020-08-21 12:25 | NUR ---
PT EATING LUNCH TOLERATING WELL
--- NOTE | 2020-08-21 12:38 | NUR ---
MEDICATIONS GIVEN PER MD ORDER. PT EDUCATED VERBALIZED UNDERSTANDING. NO S/SX OF DISTRESS AT THIS TIME. PT TOLERATED WELL.
--- NOTE | 2020-08-21 13:09 | NUR ---
PT ROUNDED ON DENIES PAIN OR DISCOMFORT
[2020-08-21] MEDS: NACL 0.9% 1,000 ML IV SCH (15:07)
--- NOTE | 2020-08-21 15:22 | NUR ---
IV FLUIDS CHANGED PER MD ORDER. PT EDUCATED . FAMILY AT BEDSIDE
[2020-08-21 16:00] VITALS: BP 124/78
--- NOTE | 2020-08-21 16:22 | NUR ---
BG ASSESSED. PT TOLERATED WELL. ALL SAFETY MEASURES ARE IN PLACE.
[2020-08-21] MEDS ORDERED: POTASSIUM CHLORIDE 10 MEQ TABER PO SCH (17:00)
[2020-08-21] MEDS: INSULIN LISPRO SLIDING SCALE 100 UNITS/ML VIAL SUBQ PRN (17:06)
--- NOTE | 2020-08-21 18:35 | NUR ---
PATIENTS OSTOMY BAG CHANGED. PT TOLERATED WELL 800 MLS OUTPUT
--- NOTE | 2020-08-21 19:25 | NUR ---
PT ENDORSED TO CHARRER RN FOR CONTINUITY OF CARE
--- NOTE | 2020-08-21 19:26 | NUR ---
RECEIVED PT IN STABLE CONDITION FROM AM NURSE. PT IS AWAKE,ALERT AND ORIENTED X4. AMBULATORY. ON TELE MONITOR. AT BEDSIDE. DENIES ANY DISCOMFORT NOR PAIN AT THIS TIME. IVF INFUSING WELL ON THE LT AC G#20. CLEAR AND PATENT. COLOSTOMY DRAINING WELL WITH GREENISH LIQUID STOOL. PLAN OF CARE DISCUSSED AND VERBALIZED UNDERSTANDING. WILL CONTINUE TO MONITOR.
[2020-08-21 20:00] VITALS: BP 114/78
--- NOTE | 2020-08-21 20:08 | NUR ---
BLOOD SUGAR TONIGHT 128. NO INSULIN NEEDED.
--- NOTE | 2020-08-21 22:00 | NUR ---
COLOSTOMY BAG LEAKING. REMOVED AND CHANGED TO A NEW ONE.
[2020-08-22] VITALS: BP 123/82
--- NOTE | 2020-08-22 00:30 | NUR ---
ASLEEP. NO S/S OF ANY DISCOMFORT NOTED.
--- NOTE | 2020-08-22 02:00 | NUR ---
PT AWAKE. ASKED IF ANY PAIN BIUT DENIES ANY DISCOMFORT /PAIN.
--- NOTE | 2020-08-22 03:00 | NUR ---
PT AWAKE AND COLOSTOMY BAG EMPTIED. OUTPUT YELLOWISH/GREEN LIQUID OUTPUT.
[2020-08-22 03:44] VITALS: BP 125/79
[2020-08-22] MEDS: metroNIDAZOLE 500 MG/NS PREMIX 100 ML IV SCH (04:35)
--- NOTE | 2020-08-22 05:00 | NUR ---
NO C/O ANY DISCOMFORT NOR PAIN DURING THE NIGHT
[2020-08-22 05:15] LABS: BASOPHILS % (AUTO) 0.7 % (0.0-2.0); EOSINOPHILS # (AUTO) 0.1 K/uL (0-0.4); HEMATOCRIT 29.3 % (36-52); LYMPHOCYTES # (AUTO) 1.8 K/uL (2.0-11.5); LYMPHOCYTES % (AUTO) 34.5 % (20.5-51.1); MEAN CORPUSCULAR HEMOGLOBIN 24 pg (27-31); MEAN CORPUSCULAR HGB CONC 31 g/dL (33-37); MONOCYTES # (AUTO) 0.6 K/uL (0.8-1.0); MONOCYTES % (AUTO) 12.2 % (1.7-9.3); NEUTROPHILS # (AUTO) 2.6 K/uL (1.8-7.7); NEUTROPHILS % (AUTO) 50.6 % (42.2-75.2); PLATELET COUNT (AUTO) 337 K/uL (140-450); RED BLOOD CELL COUNT(AUTO) 3.71 MIL/uL (4.20-6.10); RED CELL DISTRIBUTION WIDTH 24.6 % (11.6-13.7); WHITE BLOOD COUNT (AUTO) 5.2 K/uL (4.8-10.8)
[2020-08-22 05:37] LABS: ANION GAP 12.8 (8-16); CARBON DIOXIDE 23.4 mmol/L (21-32); CREATININE 0.6 mg/dL (0.6-1.3); POTASSIUM 3.2 mmol/L (3.5-5.1)
[2020-08-22] MEDS: BLOOD GLUCOSE MONITORING 1 DEV DEV FS SCH (05:42)
--- NOTE | 2020-08-22 06:00 | NUR ---
BLOOD SUGA THIS AM 117. NO INSULIN NEEDED.
[2020-08-22] MEDS: NACL 0.9% 1,000 ML IV SCH (06:50)
--- NOTE | 2020-08-22 07:00 | NUR ---
COLOSTOMY BAG LEAKING . REPLACED WITH NEW BAG . TOTAL AMOUNT OF OUTPUT 300ML.
--- NOTE | 2020-08-22 07:17 | NUR ---
RECEIVED REPORT FROM MERCHANDISE PRESENTATION MANAGER RN FOR CONTINUITY OF CARE. PATIENT ASLEEP IN BED IN SUPINE POSITION. IV TO LEFT AC 20G INFUSING IVF NS@ 60ML/HR. BREATHING EVEN UNLABORED ON RA. COLOSTOMY BAG TO LEFT ABD. NO ACUTE DISTRESS NOTED AT THIS TIME. SAFETY MEASURES IN PLACE, WILL CONTINUE TO MONITOR.
[2020-08-22 08:00] VITALS: BP 137/83
[2020-08-22] MEDS ORDERED: POTASSIUM CHLORIDE 10 MEQ TABER PO PRN (08:00)
[2020-08-22] MEDS ORDERED: SODIUM PHOS / POTASSIUM PHOS 1 PKT PDR PO PRN (08:00)
[2020-08-22] MEDS ORDERED: POTASSIUM CHLORIDE 10 MEQ TABER PO SCH (08:00)
[2020-08-22] MEDS ORDERED: MAGNESIUM OXIDE 400 MG TAB PO PRN (08:00)
--- NOTE | 2020-08-22 08:01 | NUR ---
REPORTED TO DR. ODEN REGARDING PATIENT'S K+ 3.2, NEW ORDER OBTAINED, WILL CARRY OUT.
[2020-08-22] MEDS ORDERED: POTASSIUM CHLORIDE 10 MEQ TABER PO ONE (08:05)
[2020-08-22] MEDS: PANTOPRAZOLE 40 MG INJ VIAL IVP SCH (08:39)
[2020-08-22] MEDS: POLYETHYLENE GLYCOL 17 GM/PKT PO SCH (08:39)
--- NOTE | 2020-08-30 19:16 | NUR ---
late entry- 0.9% NS IVF discontinued at 0747
== END 2020-08-22 11:40 | disposition home or self-care (01) | DRG 247 ==
LOC: MED 00:32 → MTU 05:39
PROVIDERS: ADMIT Hospitalist; ATTEND Hospitalist
DX: K56.609 Unspecified intestinal obstruction, unspecified as to partial versus complete obstruction (principal); E87.2 Acidosis; E44.0 Moderate protein-calorie malnutrition; E87.1 Hypo-osmolality and hyponatremia; D63.8 Anemia in other chronic diseases classified elsewhere; E11.9 Type 2 diabetes mellitus without complications; J45.909 Unspecified asthma, uncomplicated; E87.6 Hypokalemia; Z85.038 Personal history of other malignant neoplasm of large intestine; K44.9 Diaphragmatic hernia without obstruction or gangrene; K57.90 Diverticulosis of intestine, part unspecified, without perforation or abscess without bleeding; R59.1 Generalized enlarged lymph nodes; Z20.822 Contact with and (suspected) exposure to COVID-19
CPT/HCPCS: 36415; 36600; 74250; 80048; 80053; 80305; 81001; 82803; 82948; 83605; 83690; 83735; 84100; 85025; 87040; 87081; 96365; 96366; 96375; 99285; A4371; C9113; J1170; J1885; J2060; J2270; J2405; J2543; J3490

== ENCOUNTER 2020-12-14 14:57 | Emergency (ER) | payer BC, SELFPAY ==
[~2020-12-14] VITALS: Ht 162.6 cm; Wt 62.1 kg
[2020-12-14 15:09] VITALS: BP 122/69
[2020-12-14] MEDS ORDERED: MORPHINE SULFATE 4 MG/ML SYR IM ONE (15:40)
[2020-12-14] MEDS ORDERED: ACET-8386 PO (15:45)
[2020-12-14] MEDS ORDERED: CEPH-588 PO (15:45)
[2020-12-14] MEDS ORDERED: SULF-59 PO (15:45)
[2020-12-14 16:36] VITALS: BP 126/86
== END 2020-12-14 16:37 | disposition home or self-care (01) ==
LOC: MED 14:57
DX: L03.317 Cellulitis of buttock (principal); L02.31 Cutaneous abscess of buttock; E11.9 Type 2 diabetes mellitus without complications; Z79.899 Other long term (current) drug therapy; Z85.038 Personal history of other malignant neoplasm of large intestine; Z79.84 Long term (current) use of oral hypoglycemic drugs; Z90.49 Acquired absence of other specified parts of digestive tract
CPT/HCPCS: 96372; 99283; J2270

== ENCOUNTER 2020-12-21 12:19 | Emergency (ER) | payer BC ==
[~2020-12-21] VITALS: Ht 165.1 cm; Wt 60.6 kg
[~2020-12-21 12:19] MED LIST changes: +CEPH-588 PO; +SULF-59 PO
[2020-12-21 12:40] VITALS: BP 120/70
--- NOTE | 2020-12-21 13:02 | NUR ---
PT AMBUALTED TO BED 10
--- NOTE | 2020-12-21 13:05 | NUR ---
GEOVANY GUZMAN BEDSIDE WITH PATIENT
[2020-12-21] MEDS ORDERED: LIDOCAINE MPF 1% 10 MG/ML VIAL INJ ONE (13:10)
[2020-12-21] MEDS ORDERED: ONDANSETRON 4 MG ODT PO ONE (13:10)
[2020-12-21] MEDS ORDERED: MORPHINE SULFATE 4 MG/ML SYR IM ONE (13:10)
--- NOTE | 2020-12-21 13:33 | NUR ---
55 Y/O MALE BIB SON C/O ABSCESS TO BUTTOCK. PT SEEN HERE 12/14 FOR SKIN ABSCESS AND IT DRAINED AT HOME 12/15. PT WAS AT [facility] TODAY AND WAS SENT HOME AND TOLD TO COME HERE. PT REPORTS THAT IT IS STILL DRAINING. DENIES FEVER/CHILLS. REDNESS NOTED ON PT BUTTOCK REGION. ABCESS IS HARD TO TOUCH AND SLIGHT PEELING OF SKIN NOTED AROUND ABCESS PMH:COLON CANCER STAGE 4 AND DM NKDA
--- NOTE | 2020-12-21 13:37 | NUR ---
GEOVANY GUZMAN BEDSIDE PERFORMING I&D ON PT ABCESS
[2020-12-21] MEDS ORDERED: CEPH-588 PO (13:47)
[2020-12-21 14:13] VITALS: BP 110/71
== END 2020-12-21 14:13 | disposition home or self-care (01) ==
LOC: MED 12:19
DX: L02.31 Cutaneous abscess of buttock (principal); E11.9 Type 2 diabetes mellitus without complications; Z79.84 Long term (current) use of oral hypoglycemic drugs; Z79.899 Other long term (current) drug therapy; Z98.890 Other specified postprocedural states; Z85.038 Personal history of other malignant neoplasm of large intestine
CPT/HCPCS: 10060; 96372; 99283; J2001; J2270; Q0162

== ENCOUNTER 2020-12-28 11:32 | Inpatient (IN) | payer BC ==
[~2020-12-28] VITALS: Ht 165.1 cm; Wt 59.9 kg
[2020-12-28 11:35] VITALS: BP 128/81
--- NOTE | 2020-12-28 11:51 | NUR ---
55 Y/O Male BIB son c/o nausea, vomiting, abscess pain x 1 week. Patient states vomiting 3 times yesterday, no episodes today. Also states abscess R buttocks 8/10, throbbing, constant, non-radiating pain. Seen here 1 month ago for abscess. Presents with chemo port and colostomy bag. Denies chest pain, headache, abdominal pain, diarrhea, constipation, fever, chills. Chemo apt was missed today d/t feeling ill. PMHx: Colon cancer, DM, hemorrhoids, abcess on buttock Meds: Metformin NKA
--- NOTE | 2020-12-28 12:01 | NUR ---
Patient appears to be resting comfortably in bed. Vital Signs within normal limits. Respirations even and unlabored. at bedside. SR up x2 for safety. Colostomy patent and intact, contents emptied. brown semi solid stool noted. Pt given a urinal to void with 600cc of clear yellow urine at this time. Pt remains AOX4 and able to make needs known. Resp even and unlabored. BS noted x4.
[2020-12-28] MEDS ORDERED: NACL 0.9% 1,000 ML IV SCH (12:05)
[2020-12-28] MEDS ORDERED: cefTRIAXone 1,000 MG in DEXT 5% MINI-BAG PLUS 50 ML IV ONE (12:05)
[2020-12-28] MEDS ORDERED: cefTRIAXone 1,000 MG VIAL ONE (12:15)
--- NOTE | 2020-12-28 12:23 | NUR ---
EMT AT BEDSIDE FOR EKG
--- NOTE | 2020-12-28 12:34 | NUR ---
RAD AT BEDSIDE
[2020-12-28 12:46] LABS: BASOPHILS % (AUTO) 0.2 % (0.0-2.0); EOSINOPHILS % (AUTO) 0.2 % (0.0-4.0); HEMATOCRIT 26.3 % (36-52); HEMOGLOBIN 8.2 g/dL (12.0-18.0); LYMPHOCYTES % (AUTO) 6.2 % (20.5-51.1); MEAN CORPUSCULAR HEMOGLOBIN 25 pg (27-31); MEAN CORPUSCULAR HGB CONC 31 g/dL (33-37); MEAN CORPUSCULAR VOLUME 78.6 fL (80-94); MONOCYTES # (AUTO) 1.4 K/uL (0.8-1.0); MONOCYTES % (AUTO) 8.3 % (1.7-9.3); NEUTROPHILS # (AUTO) 14.1 K/uL (1.8-7.7); NEUTROPHILS % (AUTO) 85.1 % (42.2-75.2); PLATELET COUNT (AUTO) 536 K/uL (140-450); RED BLOOD CELL COUNT(AUTO) 3.34 MIL/uL (4.20-6.10); WHITE BLOOD COUNT (AUTO) 16.6 K/uL (4.8-10.8)
[2020-12-28 13:02] LABS: ALBUMIN 2.2 g/dL (3.4-5.0); ANION GAP 18.1 (8-16); CREATININE 0.8 mg/dL (0.6-1.3); POTASSIUM 4.1 mmol/L (3.5-5.1); TOTAL BILIRUBIN 0.5 mg/dL (0.0-1.0)
--- NOTE | 2020-12-28 13:29 | NUR ---
PT TAKEN TO RADIOLOGY FOR CT
--- NOTE | 2020-12-28 13:42 | NUR ---
URINE DIPPED AND RESULTS GIVEN TO DR IRVIN. MALLORY AT THIS TIME.
--- NOTE | 2020-12-28 14:00 | NUR ---
Patient appears to be resting comfortably in bed. Vital Signs within normal limits. Respirations even and unlabored.
--- NOTE | 2020-12-28 14:08 | NUR ---
Note asajose in EDM - 12/28/20 at 1821 by [facility] Patient appears to be resting comfortably in bed. Vital Signs within normal limits. Respirations even and unlabored. at bedside. SR up x2 for safety. Colostomy patent and intact. Pt given a urinal to void with 400cc of clear yellow urine at this time. Pt remains AOX4 and able to make needs known. Resp even and unlabored. BS noted x4.
[2020-12-28] MEDS ORDERED: PIPERACILLIN/TAZOBACTAM 3.375 GM in DEXTROSE 5% 50 ML IV ONE (14:15)
[2020-12-28] MEDS ORDERED: PIPERACILLIN/TAZOBACTAM 3.375 GM VIAL IV ONE (14:56)
[2020-12-28 15:25] LABS: APPEARANCE,URINE CLEAR (CLEAR); BILIRUBIN,URINE NEGATIVE (NEGATIVE); BLOOD, URINE NEGATIVE (NEGATIVE); LEUKOCYTE ESTERASE ,URINE NEGATIVE (NEGATIVE); NITRITE, URINE NEGATIVE (NEGATIVE); UGLUCOSE NEGATIVE (NEGATIVE)
[2020-12-28 15:31] LABS: COLOR,URINE YELLOW (YELLOW)
[2020-12-28] MEDS ORDERED: NACL 0.9% 1,000 ML IV ONE (15:35)
--- NOTE | 2020-12-28 16:51 | NUR ---
ASHELYID TEST COLLECTED AND WALKED DOWN TO LAB BY MIRANDA BACON
[2020-12-28] MEDS ORDERED: guaiFENesin DM 200/20 MG-10 ML 10 ML UDC PO PRN (17:00)
[2020-12-28] MEDS ORDERED: ACETAMINOPHEN 325 MG TAB PO PRN (17:00)
[2020-12-28] MEDS ORDERED: DOCUSATE SODIUM 100 MG GELCAP PO PRN (17:00)
[2020-12-28] MEDS ORDERED: ONDANSETRON 4 MG/2 ML VIAL IM/IVP PRN (17:00)
[2020-12-28 17:02] LABS: PROTHROMBIN TIME 10.2 secs (10.8-13.4)
[2020-12-28] MEDS: DEXT 5% /NACL 0.9% 1,000 ML IV SCH (18:13)
[2020-12-28] MEDS: CLINDAMYCIN 600 MG in DEXTROSE 5% 50 ML IV SCH ×2 (18:14→21:48)
--- NOTE | 2020-12-28 18:21 | NUR ---
Patient appears to be resting comfortably in bed. Vital Signs within normal limits. Respirations even and unlabored. at bedside. SR up x2 for safety. Colostomy patent and intact. Pt given a urinal to void with 500cc of clear yellow urine at this time. Pt remains AOX4 and able to make needs known. Resp even and unlabored. BS noted x4.
[2020-12-28 18:23] LABS: CHOL/HDL RATIO 3.5 (1-4.5); FREE T4 (FREE THYROXINE) 1.08 ng/dL (0.76-1.46); MAGNESIUM 2.1 mg/dL (1.8-2.4); PHOSPHORUS 4.6 mg/dL (2.5-4.9); THYROID STIMULATING HORMONE 1.48 uIU/mL (0.34-3.74)
[2020-12-28 18:27] LABS: BARBITURATE, URINE NEGATIVE ng/ml (NEG <=200); BENZODIAZEPINE, URINE NEGATIVE ng/mL (NEG <=200); CANNABINOID, URINE NEGATIVE ng/mL (NEG <=50); COCAINE, URINE NEGATIVE ng/mL (NEG <=300); OPIATE, URINE POSITIVE ng/mL (NEG <=2000); PHENCYCLIDINE SCREEN,URINE NEGATIVE ng/mL (NEG <=25)
--- NOTE | 2020-12-28 19:15 | NUR ---
Received report from Melanie BILLINGSLEY for continuity of care.
--- NOTE | 2020-12-28 19:15 | NUR ---
Pt report given to JOSE CRUZ [place]. Transfer of care at this time.
[2020-12-28] MEDS ORDERED: HYDR-5080 PO (19:30)
--- NOTE | 2020-12-28 19:36 | NUR ---
Provided patient with wipes. Relative at bedside. AAOx4. VS WNL. No signs of distress noted. Safety measures are in place, attached to the traffic monitor specialist, and will continue to monitor patient.
--- NOTE | 2020-12-28 19:49 | NUR ---
Patient will be admitted to care of Christa MABRY. Admited to Med/Surg. Will go to room 106A. Belongings list completed. Report to Alex BILLINGSLEY and Jayne BILLINGSLEY.
[2020-12-28] MEDS: PIPERACILLIN/TAZOBACTAM 3.375 GM in DEXTROSE 5% 50 ML IV SCH ×2 (20:00→23:42)
--- NOTE | 2020-12-28 20:10 | NUR ---
patient to the floor via rney
[2020-12-28 20:30] VITALS: BP 130/83
--- NOTE | 2020-12-28 20:30 | NUR ---
PATIENT ADMITTED FROM ED WITH CHIEF COMPLAINT OF NAUSEA AND VOMITING. PATIENT IS A 55 Y/O MALE AND COOPERATIVE. A&O X4. SPEAKS [place] AND KOREAN. VERBALLY RESPONSIVE AND ABLE TO COMMUNICATE NEEDS. PATIENT C/O PAIN 6/10 IN THE RIGHT HIP AREA RADIATING TO RIGHT BUTTOCK. PATIENT STATES THAT EPISODES OF NAUSEA AND VOMITING STARTED ON Saturday12-26-20. PATIENT STATES THAT HE HAS NOT BEEN RETAINING THE FOOD HE EATS BECAUSE HE VOMITS IT RIGHT AWAY. PATIENT STATES THAT HE HAS LOST ABOUT 14 LBS. PATIENT IS CURRENTLY NPO DUE TO AN INCISION AND DRAINAGE WITH DR. ART. PATIENT HAS A PORTACATH ON RIGHT UPPER CHEST AND A COLOSTOMY BAG IN THE LEFT LOWER ABD. PATIENT HAS A HISTORY OF COLON CANCER AND DM2. PATIENT IS ON ROOM AIR. VITAL SIGNS TAKEN BP: 130/83 HR: 95 O2: 97% RR: 16 T: 98.7 PAIN: 6/10. PATIENT HAS AN IV LAC20G WITH IVF INFUSING AT 100 ML/HOUR. HEAD TO TOE ASSESSMENT COMPLETED WITH CHARGE NURSE AKBAR. WOUND ASSESSMENTS COMPLETED. MEASUREMENTS AND PHOTOS TAKEN. PERIRECTAL ABSCESS ON RIGHT BUTTOCK NOTED 2CM X 1.5CM. REDNESS NOTED AROUND THE SOURCE OF ABSCESS. MILD DRAINAGE NOTED. CLEANSED WITH NSS AND PATTED DRY. PADS ON BED PROVIDED. PATIENT STATES HE IS ABLE TO AMBULATE BUT FEELS VERY WEAK. BEDSIDE URINAL PROVIDED. RESPIRATIONS EVEN AND UNLABORED. NO APPARENT S/SX OF ACUTE DISTRESS. PATIENT IS ORIENTED TO CALL LIGHT, BED, PHONE, TELEVISION, BATHROOM, SMOKING POLICY, VISITING HOURS, PROCEDURES AND ID BRACELET IS ON. BELONGINGS LIST CHECKED. WHITE BOARD COMMUNICATION UPDATED. ALL SAFETY MEASURES IN PLACE. BED IN LOW/LOCKED POSITION. CALL LIGHT WITHIN REACH. ENCOURAGED PATIENT TO USE CALL LIGHT FOR ANY NEEDS/ASSISTANCE.
[2020-12-28] MEDS: HYDROcodone/APAP 7.5/325 MG 1 TAB PO PRN (21:06)
[2020-12-28] MEDS ORDERED: CLINDAMYCIN 600 MG/4 ML VIAL ONE (21:14)
--- NOTE | 2020-12-28 22:06 | NUR ---
PRN NORCO WAS NOT EFFECTIVE. PATIENT C/O PAIN 08/27. CONTACTED DR. ESCOBAR TO PRESCRIBE ANOTHER PAIN MEDICATION.
--- NOTE | 2020-12-28 22:27 | NUR ---
DR. ESCOBAR PRESCRIBED MORPHINE 2MG IVP Q4H PRN FOR SEVERE PAIN. DR. ESCOBAR STATES THAT IF MEDICATION IS NOT EFFECTIVE TO LET PATIENT KNOW THAT MD WILL TALK TO PATIENT TOMORROW MORNING WHEN ROUNDS ARE MADE.
[2020-12-28] MEDS ORDERED: MORPHINE SULFATE 2 MG/ML SYR IVP PRN (22:30)
--- NOTE | 2020-12-28 23:14 | NUR ---
Patient's Plan of Care was discussed and reviewed with NURSERY SCHOOL TEACHER: JEREMIAS LEOS.
[2020-12-28] MEDS: MORPHINE SULFATE 2 MG/ML SYR IVP PRN (23:52)
[2020-12-29] VITALS: BP 124/79
--- NOTE | 2020-12-29 00:25 | NUR ---
ROUNDED ON PATIENT. STABLE AND ASLEEP IN RIGHT SIDE-LYING POSITION. CHEST RISING AND FALLING. RESPIRATIONS EVEN AND UNLABORED. NO APPARENT S/SX OF ACUTE DISTRESS. WHITE BOARD COMMUNICATION UPDATED. CALL LIGHT WITHIN REACH. WILL CONTINUE TO MONITOR.
--- NOTE | 2020-12-29 02:25 | NUR ---
CHECKED PATIENT. STABLE AND ASLEEP IN RIGHT SIDE-LYING POSITION. CHEST RISING AND FALLING. RESPIRATIONS EVEN AND UNLABORED. NO APPARENT S/SX OF ACUTE DISTRESS. WHITE BOARD COMMUNICATION UPDATED. CALL LIGHT WITHIN REACH. WILL CONTINUE TO MONITOR.
[2020-12-29] MEDS: DEXT 5% /NACL 0.9% 1,000 ML IV SCH ×4 (03:00→22:10)
[2020-12-29 04:00] VITALS: BP 136/89
--- NOTE | 2020-12-29 04:25 | NUR ---
ANSWERED CALL LIGHT. PATIENT REQUESTED TO CLEANSE ABSCESS SITE. MODERATE SEROSANGUINEOUS NON MALODOROUS DRAINAGE NOTED. CLEANSED AREA WITH NSS, PAT DRY, PACKED GAUZE AND COVERED WITH ISLAND DRESSING. PATIENT C/O PAIN 9/10 IN PERIRECTAL AREA. WILL ENDORSE TO CHARGE NURSE AKBAR TO ADMINISTER PRN MORPHINE IVP PER MD ORDER. NO APPARENT S/SX OF ACUTE DISTRESS. WHITE BOARD COMMUNICATION UPDATED. CALL LIGHT WITHIN REACH. WILL CONTINUE TO MONITOR.
--- NOTE | 2020-12-29 05:00 | NUR ---
ASSESSED PATIENT'S COLOSTOMY BAG. STOOL PRESENT AND FORMED. PATIENT STATED THAT BAG IS REPLACED BY EVERY 2 DAYS. PATIENT STATED THAT WILL BE HERE LATER TODAY TO REPLACE BAG. WILL ENDORSE TO NEXT SHIFT.
[2020-12-29] MEDS: MORPHINE SULFATE 2 MG/ML SYR IVP PRN ×3 (05:07→09:03)
[2020-12-29] MEDS: CLINDAMYCIN 600 MG in DEXTROSE 5% 50 ML IV SCH ×3 (05:08→20:32)
[2020-12-29] MEDS: PIPERACILLIN/TAZOBACTAM 3.375 GM in DEXTROSE 5% 50 ML IV SCH ×3 (05:56→17:23)
--- NOTE | 2020-12-29 06:07 | NUR ---
REASSESSED PAIN. MEDICATION WAS NOT EFFECTIVE. PATIENT C/O PAIN 07/28. MD LAST NIGHT ENDORSED THAT IF PRN PAIN MEDICATION IS NOT EFFECTIVE, MD WILL TALK TO PATIENT ABOUT IT WHEN ROUNDS ARE MADE. PATIENT VERBALIZED UNDERSTANDING. WILL ENDORSE TO INCOMING SHIFT.
[2020-12-29 06:46] LABS: ANION GAP 12.3 (8-16); CARBON DIOXIDE 24.2 mmol/L (21-32); CREATININE 0.7 mg/dL (0.6-1.3); POTASSIUM 3.5 mmol/L (3.5-5.1)
[2020-12-29 06:57] LABS: BASOPHILS # (AUTO) 0.1 K/uL (0.00-0.22); BASOPHILS % (AUTO) 0.4 % (0.0-2.0); EOSINOPHILS # (AUTO) 0.1 K/uL (0-0.4); EOSINOPHILS % (AUTO) 0.5 % (0.0-4.0); HEMOGLOBIN 7.9 g/dL (12.0-18.0); LYMPHOCYTES % (AUTO) 7.2 % (20.5-51.1); MEAN CORPUSCULAR HEMOGLOBIN 25 pg (27-31); MEAN CORPUSCULAR HGB CONC 32 g/dL (33-37); MEAN CORPUSCULAR VOLUME 77.9 fL (80-94); MONOCYTES # (AUTO) 1.4 K/uL (0.8-1.0); MONOCYTES % (AUTO) 10.1 % (1.7-9.3); NEUTROPHILS # (AUTO) 11.6 K/uL (1.8-7.7); NEUTROPHILS % (AUTO) 81.8 % (42.2-75.2); PLATELET COUNT (AUTO) 524 K/uL (140-450); RED BLOOD CELL COUNT(AUTO) 3.21 MIL/uL (4.20-6.10); RED CELL DISTRIBUTION WIDTH 18.4 % (11.6-13.7); WHITE BLOOD COUNT (AUTO) 14.2 K/uL (4.8-10.8)
--- NOTE | 2020-12-29 07:01 | NUR ---
ENDORSED PATIENT TO MORNING SHIFT FOR CONTINUITY OF CARE. PATIENT IS STABLE.
--- NOTE | 2020-12-29 07:45 | NUR ---
Patient awake, alert and oriented. Able to verbalize needs. Patient's pain not under control despite being medicated and Physician notified. Safety measures in place with call light within reach, bed lowered and has no further needs.
[2020-12-29 08:00] VITALS: BP 127/79
[2020-12-29] MEDS: PANTOPRAZOLE 40 MG TABEC PO SCH (08:33)
--- NOTE | 2020-12-29 08:45 | NUR ---
PATIENT HAS BEEN SCREENED AND CATEGORIZED HIGH NUTRITION RISK. PATIENT WILL BE SEEN WITHIN 1-2 DAYS OF ADMISSION. 12/29/20-12/30/20 CONSULT FOR WOUNDS AND PRESSURE INJURY AND REFERRAL FOR VOMITING OVER [address]
[2020-12-29] MEDS: HYDROcodone/APAP 7.5/325 MG 1 TAB PO PRN ×2 (09:57→15:38)
--- NOTE | 2020-12-29 10:54 | NUR ---
DC PLANN[age] YRS OLD MALE PATIENT WAS ADMITTED FROM HOME WITH A DX OF PERIRECTAL ABSCESS, SEPSIS. PATIENT HAS A HX OF DM, STAGE 4 COLON CA, ON CHEMOTHERAPY, WITH DR GALLAGHER ONCOLOGIST. PT HAS COLOSTOMY. CXR SHOWED NO ACUTE CARDIOPULMONARY DISEASE. CT ABD/PELVIS SHOWED SUSPECTED METASTATIC IMPLANTS ALONG THE OMENTUM AND MESENTERY. URINE AND BLOOD CULTURE PENDING. RAPID COVID TEST NEGATIVE. ADMINISTERED IVF IV ABX ZOSYN AND CLINDAMYCIN. CONSULTED WITH DR ART SURGEON. DC PLAN TO GO HOME WHEN STABLE CM TO FOLLOW.
[2020-12-29] MEDS ORDERED: DEXTROSE 50% 50 ML SYR IVP PRN (11:55)
[2020-12-29 12:00] VITALS: BP 126/75
[2020-12-29] MEDS: INSULIN LISPRO SLIDING SCALE 100 UNITS/ML VIAL SUBQ PRN (12:09)
[2020-12-29] MEDS: MORPHINE SULFATE 4 MG/ML SYR IVP PRN ×3 (12:18→21:25)
[2020-12-29] MEDS ORDERED: LIDOCAINE 2% 100 MG/5 ML UJET TP ONE (12:48)
[2020-12-29] MEDS ORDERED: SEVOFLURANE 250 ML BTL INH ONE (13:12)
[2020-12-29] MEDS ORDERED: METOCLOPRAMIDE 10 MG/2 ML INJ VIAL ONE (13:12)
[2020-12-29] MEDS ORDERED: BUPIVACAINE-MPF 0.5% 30 ML VIAL INJ ONE (13:14)
[2020-12-29] MEDS ORDERED: LIDOCAINE 1% 500 MG/50 ML VIAL ONE (13:20)
[2020-12-29] MEDS ORDERED: BUPIVACAINE-MPF 0.25% 30 ML VIAL INJ ONE (13:20)
[2020-12-29] MEDS ORDERED: PROPOFOL 200 MG/20 ML VIAL IV ONE (13:24)
[2020-12-29] MEDS ORDERED: MIDAZOLAM 2 MG/2 ML VIAL ONE (13:24)
[2020-12-29] MEDS ORDERED: fentaNYL citrate 0.05 MG/ML VIAL ONE (13:25)
[2020-12-29] MEDS ORDERED: HYDROmorphone PFS 2 MG/ML SYR ONE ×2 (14:02→14:37)
[2020-12-29] MEDS ORDERED: MEPERIDINE 25 MG/ML SYR IVP PRN (14:15)
[2020-12-29] MEDS ORDERED: ONDANSETRON 4 MG/2 ML VIAL IVP PRN (14:15)
[2020-12-29] MEDS: HYDROmorphone 1 MG/ML AMP IVP PRN ×3 (14:30→14:50)
--- NOTE | 2020-12-29 15:01 | NUR ---
12/29/20 RD INITIAL ASSESSMENT COMPLETED PLEASE REFER TO NUTRITION ASSESSMENT UNDER CARE ACTIVITY FOR ESTIMATED NUTRITIONAL NEEDS. 1. CONTINUE CCHO 60GM DIET TOLERATED 2. RECOMMEND GLUCERNA TID AND ELVIRA BID FOR WOUND HEALING 3. RD TO FOLLOW-UP 3-5 DAYS, MODERATE RISK LONG [place], RD
[2020-12-29 16:00] VITALS: BP 136/89
[2020-12-29] MEDS: BLOOD GLUCOSE MONITORING 1 DEV DEV FS SCH ×2 (17:23→20:32)
--- NOTE | 2020-12-29 19:20 | NUR ---
RECEIVED REPORT FROM AM SHIFT NURSE, FOR CONTINUITY OF CARE. PT IS A&OX4, AMBULATORY. NO S/S OF DISTRESS ON RA. SKIN IS WARM, DRY AND NON DIAPHORETIC. IV INTACT ON L AC G20 INFUSING D5NS @ 100MLS/HR. NOTED WITH RECTAL PACK WITH DRESSING IN PLACE. COMPLAINS OF PAIN 9/10. WITH COLOSTOMY DRAINING WELL. CALL LIGHT WITHIN REACH. ALL SAFETY MEASURES IN PLACE. WILL CONTINUE TO MONITOR.
[2020-12-29 20:00] VITALS: BP 111/77
--- NOTE | 2020-12-29 20:32 | NUR ---
BLOOD GLUCOSE CHECKED 139, NO COVERAGE NEEDED. ADMINISTERED SCHEDULE MEDICATION, PT TOLERATED IT WELL.
--- NOTE | 2020-12-29 21:25 | NUR ---
PT COMPLAINS OF PAIN ON THE BUTTOCK, ADMINISTERED MEDICATION ORDERED. WILL CONTINUE TO MONITOR.
--- NOTE | 2020-12-29 22:36 | NUR ---
PT COMPLAINS OF UNABLE TO SLEEP, TAYLOR WHITE WAS GIVEN. PT TOLERATED IT WELL. CALL LIGHT WITHIN REACH. ALL SAFETY MEASURES IN PLACE. Addendum: 12/30/20 at 7686 by Nilda Luna RN RN THIS NOTE IS FOR 1763.
[2020-12-29] MEDS: ZOLPIDEM 5 MG TAB PO PRN (23:36)
[2020-12-30] MEDS: PIPERACILLIN/TAZOBACTAM 3.375 GM in DEXTROSE 5% 50 ML IV SCH ×4 (00:07→18:08)
--- NOTE | 2020-12-30 00:07 | NUR ---
SCHEDULED MEDICATION ADMINISTERED ORDERED. PT TOLERATED IT WELL. ALL SAFETY PRECAUTIONS IN PLACE.
--- NOTE | 2020-12-30 02:15 | NUR ---
PT IS ASLEEP, NO S/S OF DISTRESS. RESPIRATIONS EVEN AND UNLABORED. CALL LIGHT WITHIN REACH.
[2020-12-30 04:00] VITALS: BP 128/80
[2020-12-30] MEDS: MORPHINE SULFATE 4 MG/ML SYR IVP PRN ×5 (04:17→21:18)
--- NOTE | 2020-12-30 04:17 | NUR ---
PT COMPLAINT Addendum: 12/30/20 at 0650 by Nilda Luna RN RN THIS NOTE IS CONTINUATION OF 0417: PT COMPLAINS OF PAIN, MORPHINE IVP GIVEN BY MARAL CHARGE NURSE. WILL CONTINUE TO MONITOR.
[2020-12-30] MEDS: CLINDAMYCIN 600 MG in DEXTROSE 5% 50 ML IV SCH ×3 (05:24→20:11)
[2020-12-30 06:07] LABS: T4 (THYROXINE) 7.5 ug/dL (4.5-12.0)
--- NOTE | 2020-12-30 06:25 | NUR ---
SCHEDULED MEDICATION GIVEN ORDERED. PT TOLERATED IT WELL. BLOOD GLUCOSE CHECK WAS 167, INSULIN GIVEN SUBQ ORDERED. WILL CONTINUE TO MONITOR.
[2020-12-30] MEDS: BLOOD GLUCOSE MONITORING 1 DEV DEV FS SCH ×4 (06:26→20:12)
[2020-12-30] MEDS: INSULIN LISPRO SLIDING SCALE 100 UNITS/ML VIAL SUBQ PRN ×3 (06:26→20:10)
[2020-12-30 06:43] LABS: BASOPHILS % (AUTO) 0.4 % (0.0-2.0); EOSINOPHILS # (AUTO) 0.1 K/uL (0-0.4); EOSINOPHILS % (AUTO) 0.8 % (0.0-4.0); HEMATOCRIT 21.6 % (36-52); HEMOGLOBIN 7.1 g/dL (12.0-18.0); LYMPHOCYTES # (AUTO) 1.2 K/uL (2.0-11.5); LYMPHOCYTES % (AUTO) 10.5 % (20.5-51.1); MEAN CORPUSCULAR HEMOGLOBIN 25 pg (27-31); MEAN CORPUSCULAR HGB CONC 33 g/dL (33-37); MEAN CORPUSCULAR VOLUME 77.5 fL (80-94); MONOCYTES # (AUTO) 1.2 K/uL (0.8-1.0); MONOCYTES % (AUTO) 10.2 % (1.7-9.3); NEUTROPHILS # (AUTO) 9.1 K/uL (1.8-7.7); NEUTROPHILS % (AUTO) 78.1 % (42.2-75.2); PLATELET COUNT (AUTO) 469 K/uL (140-450); RED BLOOD CELL COUNT(AUTO) 2.79 MIL/uL (4.20-6.10); RED CELL DISTRIBUTION WIDTH 17.9 % (11.6-13.7); WHITE BLOOD COUNT (AUTO) 11.6 K/uL (4.8-10.8)
--- NOTE | 2020-12-30 07:20 | NUR ---
ENDORSED TO AM SHIFT NURSE, FOR CONTINUITY OF CARE. PT IS STABLE.
--- NOTE | 2020-12-30 07:25 | NUR ---
RECEIVED REPORT FROM TRAVELING MISSIONARY NURSE, FOR CONTINUITY OF CARE. PT IS A&OX4, AMBULATORY. NO S/S OF DISTRESS ON RA. SKIN IS WARM, DRY AND NON DIAPHORETIC. IV INTACT ON LAC G20 INFUSING D5NS @ 100MLS/HR. NOTED WITH RECTAL PACK WITH DRESSING IN PLACE. COMPLAINS OF PAIN 9/10 WILL MEDICATE WITH PAIN MEDS PRN. WITH COLOSTOMY DRAINING WELL. PLAN OF CARE DISCUSSED. CALL LIGHT WITHIN REACH. ALL SAFETY MEASURES IN PLACE. WILL CONTINUE TO MONITOR.
[2020-12-30 08:00] VITALS: BP 128/84
[2020-12-30] MEDS: PANTOPRAZOLE 40 MG TABEC PO SCH (09:36)
[2020-12-30] MEDS: DEXT 5% /NACL 0.9% 1,000 ML IV SCH ×2 (09:36→19:34)
--- NOTE | 2020-12-30 09:40 | NUR ---
ALL SCHEDULED MEDS GIVEN. PT IS STABLE.
--- NOTE | 2020-12-30 10:00 | NUR ---
UPON ARRIVAL TO PT. ROOM NOTICE OF WOUND DRESSING ON FLOOR, PER PT. HE REMOVED IT. WOUND ASSESSMENT TO RIGHT LEIDY-RECTAL WOUND NOT DONE, DUE TO WOUND SITE WITH MODERATE AMOUNT FRESH BLOOD, MODERATE AMOUNT BLEEDING NOTICE, IODOFORM DRESSING IN PLACE. PRESSURE APPLY TO WOUND SITE AND DRESSING REINFORCED. POC DISCUSSED WITH PT. AND WOUND CARE EDUCATION TO PT. NOT TO REMOVE DRESSING CALL NURSE TO REPLACE/CHANGE DRESSING IF NEEDED. PT. VERBALIZES UNDERSTANDING. POC DISCUSSED WITH PRIMARY RN AND DR. ESCOBAR. RECOMMENDATION: -PLEASE KEEP DRESSING DRY AND CLEAN ,MAY REINFORCE DRESSING , NO DRESSING CHANGE TODAY, MAY START DRESSING CHANGE TOMORROW AFTERNOON. IF BLEEDING CONTINUE PLEASE CONTACT SURGEON. -DRESSING CHANGE DAILY START 12/31/2020 REMOVE SOILED IODOFORM PACKING, RINSE WOUND BED WITH NS, PAT DRY, PACK WITH CLEAN IODOFORM STRIPS AND APPLY DRY DRESSING ,SECURE WITH TAPE QD AND PRN IF SOILING.
--- NOTE | 2020-12-30 10:12 | NUR ---
IV DISLODGED WILL REINSERT NEW IV.
--- NOTE | 2020-12-30 10:15 | NUR ---
WOUND CARE NURSE MAU AT BEDSIDE CHANGING PATIENT'S DRESSING. KEPT C/D/I
--- NOTE | 2020-12-30 10:30 | NUR ---
REINSERTED NEW IV ON LFA 22G. INTACT AND PATENT.
[2020-12-30 11:06] LABS: ANION GAP 15.7 (8-16); CARBON DIOXIDE 21.4 mmol/L (21-32); CREATININE 0.7 mg/dL (0.6-1.3); POTASSIUM 3.1 mmol/L (3.5-5.1)
--- NOTE | 2020-12-30 12:27 | NUR ---
BLOOD SUGAR CHECK IS 191. ADMINISTERED 2 UNITS OF INSULIN SQ PER MD ORDERED.
[2020-12-30] MEDS: GAUZE TP SCH (13:02)
--- NOTE | 2020-12-30 13:14 | NUR ---
ALL SCHEDULED MEDS GIVEN. PT IS STABLE. NO DISTRESS NOTED. WILL CONTINUE TO MONITPOR.
[2020-12-30 16:00] VITALS: BP 129/79
[2020-12-30] MEDS: POTASSIUM CHLORIDE 10 MEQ TABER PO PRN (16:36)
--- NOTE | 2020-12-30 16:42 | NUR ---
BLOOD GLUCOSE CHECK WAS 120. NO INSULIN COVERAGE NEEDED.
--- NOTE | 2020-12-30 19:37 | NUR ---
ENDORSED TO FISH INSPECTOR NURSE FOR CONTINUITY OF CARE. PT IS STABLE.
[2020-12-30 20:00] VITALS: BP 136/84
[2020-12-31 00:05] VITALS: BP 128/79
[2020-12-31] MEDS: PIPERACILLIN/TAZOBACTAM 3.375 GM in DEXTROSE 5% 50 ML IV SCH ×4 (00:12→18:11)
--- NOTE | 2020-12-31 00:15 | NUR ---
Handoff with JOSE CRUZ [place]. Ari Whiteside RN
--- NOTE | 2020-12-31 02:03 | NUR ---
the patient was admitted for perirectal abscess and I/D was done on 12/29/2020 and dressing is intact. he continues on andtibx , ,wound care, and pain management. breathing is even and unlabored. he is on RA.his wbcs level is going down . comfort and safety measures are provided. bed is low position the patient sleeps comfortable in his bed
[2020-12-31] MEDS: CLINDAMYCIN 600 MG in DEXTROSE 5% 50 ML IV SCH ×3 (04:02→20:32)
[2020-12-31] MEDS: DEXT 5% /NACL 0.9% 1,000 ML IV SCH ×2 (04:02→14:58)
[2020-12-31] MEDS: MORPHINE SULFATE 4 MG/ML SYR IVP PRN ×5 (04:06→21:39)
[2020-12-31 04:14] VITALS: BP 133/89
[2020-12-31] MEDS: BLOOD GLUCOSE MONITORING 1 DEV DEV FS SCH ×4 (06:46→20:31)
[2020-12-31 07:05] LABS: BASOPHILS # (AUTO) 0.1 K/uL (0.00-0.22); BASOPHILS % (AUTO) 0.6 % (0.0-2.0); EOSINOPHILS # (AUTO) 0.2 K/uL (0-0.4); EOSINOPHILS % (AUTO) 1.5 % (0.0-4.0); HEMATOCRIT 23.1 % (36-52); HEMOGLOBIN 7.4 g/dL (12.0-18.0); LYMPHOCYTES # (AUTO) 1.2 K/uL (2.0-11.5); LYMPHOCYTES % (AUTO) 11.8 % (20.5-51.1); MEAN CORPUSCULAR HEMOGLOBIN 25 pg (27-31); MEAN CORPUSCULAR HGB CONC 32 g/dL (33-37); MEAN CORPUSCULAR VOLUME 77.7 fL (80-94); MONOCYTES # (AUTO) 1.3 K/uL (0.8-1.0); MONOCYTES % (AUTO) 11.9 % (1.7-9.3); NEUTROPHILS # (AUTO) 7.8 K/uL (1.8-7.7); NEUTROPHILS % (AUTO) 74.2 % (42.2-75.2); PLATELET COUNT (AUTO) 476 K/uL (140-450); RED BLOOD CELL COUNT(AUTO) 2.97 MIL/uL (4.20-6.10); RED CELL DISTRIBUTION WIDTH 17.8 % (11.6-13.7); WHITE BLOOD COUNT (AUTO) 10.6 K/uL (4.8-10.8)
[2020-12-31 07:19] LABS: ANION GAP 12.3 (8-16); CREATININE 0.6 mg/dL (0.6-1.3); POTASSIUM 3.3 mmol/L (3.5-5.1)
--- NOTE | 2020-12-31 07:46 | NUR ---
RECEIVED REPORT FROM ORTHO ASSISTANT NURSE, FOR CONTINUITY OF CARE. PT IS A&OX4, AMBULATORY. NO S/S OF DISTRESS ON RA. SKIN IS WARM, DRY AND NON DIAPHORETIC. IV INTACT ON LAC G20 INFUSING D5NS @ 100MLS/HR.PATIENT WITH COLOSTOMY DRAINING WELL. PLAN OF CARE DISCUSSED. CALL LIGHT WITHIN REACH. ALL SAFETY MEASURES IN PLACE
[2020-12-31 08:00] VITALS: BP 131/83
[2020-12-31] MEDS: PANTOPRAZOLE 40 MG TABEC PO SCH (09:30)
[2020-12-31] MEDS: POTASSIUM CHLORIDE 10 MEQ TABER PO PRN (09:30)
--- NOTE | 2020-12-31 09:49 | NUR ---
PATIENT IN BED NO COMPLAINS GOT MORNING MEDICATION TOLERATED WELL ALL SAFETY MEASURES IN PLACE CALLS LIGHT WITHIN REACH Addendum: 12/31/20 at 1005 by Amber Dent RN RN PATIENT COMPLAINS ABOUT PAIN, GOT MEDICATED MD BAUGH
[2020-12-31] MEDS: INSULIN LISPRO SLIDING SCALE 100 UNITS/ML VIAL SUBQ PRN ×2 (12:03→20:36)
[2020-12-31] MEDS: HYDROcodone/APAP 7.5/325 MG 1 TAB PO PRN (12:03)
--- NOTE | 2020-12-31 12:05 | NUR ---
PATIENT IN BED COMPLAINS ABOUT PAIN GOT MEDICATION MD ORDER, HIS NEXT TO BEDSIDE ALL SAFETY MEASURES IN PLACE CALLS LIGHT WITHIN REACH
[2020-12-31] MEDS: GAUZE TP SCH (13:54)
--- NOTE | 2020-12-31 15:24 | NUR ---
PATIENT IN BED NO COMPLAINS AT THIS MOMENT PAIN GOT RELIEVED AND TOLERABLE AT THIS MOMENT , NO SOD NOTED ALL SAFETY MEASURES IN PLACE CALLS LIGHT WITHIN REACH
--- NOTE | 2020-12-31 18:13 | NUR ---
PATIENT IN BED NO COMPLAINS , NO SOD NOTED ALL SAFETY MEASURES IN PLACE CALLS LIGHT WITHIN REACH
--- NOTE | 2020-12-31 19:24 | NUR ---
FULL BEDSIDE REPORT GIVEN TO SPORTS BOOKMAKER NURSE
--- NOTE | 2020-12-31 19:35 | NUR ---
RECEIVED REPORT FROM AM NURSE. PT IN BED W/FAMILY MEMBER AT BESIDE. WILL CONTINUE PT PLAN OF CARE.
[2020-12-31 20:00] VITALS: BP 130/85
--- NOTE | 2020-12-31 20:00 | NUR ---
PT LAYING IN BED. A&OX4, PT IS BREATHING ON ROOM AIR. D5NS RUNNING AT 100ML/HR. 20G IV ON LAC. PT VITAL SIGNS FOLLOW 130/85, HR: 92, O2: 97, TEMP: 98.7, RR: 18. SAFETY MEASURES IN PLACE AND CALL LIGHT WITHIN REACH. WILL CONTINUE TO MONITOR.
--- NOTE | 2020-12-31 20:30 | NUR ---
PT LAYING BED. RECEIVED CELOCIN ORDER. PT COMPLAINS OF PAIN AND EXPLAINED HE CAN GET NORCO AND DECLINE. PT STATED HE WILL WAIT TILL THE NEXT SCHEDULE MEDICATION.
[2020-12-31] MEDS: ZOLPIDEM 5 MG TAB PO PRN (21:37)
--- NOTE | 2020-12-31 21:40 | NUR ---
PT LAYING IN BED. EMPTIED URINAL. PT COMPLAINS OF PAIN ON A SCALE OF 0-10 AND RATED IT 10/10 AND REQUESTED SLEEP MEDICATION. PT RECEIVED PAIN MEDICATION & AMBIEN ORDERED. SAFETY MEASURES IN PLACE AND CALL LIGHT WITHIN REACH. WILL CONTINUE TO MONITOR.
[2021-01-01] MEDS: PIPERACILLIN/TAZOBACTAM 3.375 GM in DEXTROSE 5% 50 ML IV SCH ×3 (00:17→11:45)
--- NOTE | 2021-01-01 00:24 | NUR ---
PT LAYING IN BED. RECEIVED ZOSYN ORDER. PT COMPLAINS OF PAIN. SAFETY MEASURES IN PLACE, CALL LIGHT WITHIN REACH, AND WILL CONTINUE TO MONITOR.
[2021-01-01] MEDS: MORPHINE SULFATE 4 MG/ML SYR IVP PRN ×2 (00:41→09:46)
--- NOTE | 2021-01-01 00:50 | NUR ---
PT IN BED. COMPLAINS OF PAIN AND RECEIVED PAIN MEDICATION. EXPLAINED TO PT I'LL BE BACK TO CHANGE DRESSING IN [address]ES. SAFETY MEASURES IN PLACE AND CALL LIGHT WITHIN REACH. WILL CONTINUE TO MONITOR.
[2021-01-01] MEDS: DEXT 5% /NACL 0.9% 1,000 ML IV SCH ×2 (01:00→11:00)
--- NOTE | 2021-01-01 01:00 | NUR ---
PT IN BED. DRESSING CHANGED. WOUND BED RED/PURPLE. DRAINAGE PURULENT AND SEROSANGUINEOUS. PICTURE TAKEN OF THE WOUND. SAFETY MEASURES IN PLACE AND CALL LIGHT WITHIN REACH. WILL CONTINUE TO MONITOR.
[2021-01-01] MEDS: HYDROcodone/APAP 7.5/325 MG 1 TAB PO PRN (01:31)
--- NOTE | 2021-01-01 02:30 | NUR ---
PT LAYING IN BED AND IS SLEEPING. SHOWS NO SIGNS OF DISTRESS. SYMMETRICAL CHEST RISE AND FALL. SAFETY MEASURES IN PLACE AND CALL LIGHT WITHIN REACH. WILL CONTINUE TO DO FREQUENT ROUNDS.
[2021-01-01 04:00] VITALS: BP 128/83
--- NOTE | 2021-01-01 04:00 | NUR ---
PT IN BED SLEEPING. CHEST IS RISE AND FALLING. SAFETY MEASURES IN PLACE. CALL LIGHT WITHIN REACH. WILL CONTINUE TO MONITOR.
[2021-01-01] MEDS: CLINDAMYCIN 600 MG in DEXTROSE 5% 50 ML IV SCH ×2 (05:43→13:33)
--- NOTE | 2021-01-01 05:45 | NUR ---
PT LAYING IN BED. RECEIVED SCHEDULED ABX. ORDERED. BLOOD SUGAR TAKEN AND IT WAS 137. SAFETY MEASURES IN PLACE. WILL CONTINUE TO MONITOR.
[2021-01-01 07:13] LABS: BASOPHILS # (AUTO) 0.1 K/uL (0.00-0.22); BASOPHILS % (AUTO) 0.7 % (0.0-2.0); EOSINOPHILS # (AUTO) 0.3 K/uL (0-0.4); EOSINOPHILS % (AUTO) 2.8 % (0.0-4.0); HEMOGLOBIN 7.4 g/dL (12.0-18.0); LYMPHOCYTES # (AUTO) 1.5 K/uL (2.0-11.5); LYMPHOCYTES % (AUTO) 15.2 % (20.5-51.1); MEAN CORPUSCULAR HEMOGLOBIN 25 pg (27-31); MEAN CORPUSCULAR HGB CONC 32 g/dL (33-37); MEAN CORPUSCULAR VOLUME 77.7 fL (80-94); MONOCYTES # (AUTO) 1.2 K/uL (0.8-1.0); MONOCYTES % (AUTO) 11.8 % (1.7-9.3); NEUTROPHILS % (AUTO) 69.5 % (42.2-75.2); PLATELET COUNT (AUTO) 505 K/uL (140-450); RED BLOOD CELL COUNT(AUTO) 2.96 MIL/uL (4.20-6.10); RED CELL DISTRIBUTION WIDTH 17.9 % (11.6-13.7); WHITE BLOOD COUNT (AUTO) 10.1 K/uL (4.8-10.8)
[2021-01-01 07:20] LABS: CARBON DIOXIDE 22.5 mmol/L (21-32); CREATININE 0.7 mg/dL (0.6-1.3); POTASSIUM 3.5 mmol/L (3.5-5.1)
--- NOTE | 2021-01-01 07:20 | NUR ---
ENDORSED PT TO AM SHIFT NURSE FOR CONTINUITY OF CARE. PT IS STABLE. PLAN OF CARE DISCUSSED.
--- NOTE | 2021-01-01 07:21 | NUR ---
RECEIVED PATIENT FROM COMPUTER SYSTEMS INTEGRATOR NURSE FOR CONTINUITY OF CARE. PATIENT IS A/A/O X4. RESPIRATORY EVEN AND UNLABORED, ON ROOM AIR. NO SIGN OF DISTRESS NOTED. SKIN WARM, DRY, NON DIAPHORETIC. IV ON LEFT AC 20G, INTACT AND PATENT, IS INFUSING FLUID ORDER. COLOSTOMY BAG NOTED ON RIGHT UPPER QUADRANT. SURGICAL WOUND NOTED ON RIGHT BUTTOCK, DRESSING INTACT, CLEAN AND DRY. PLAN OF CARE DISCUSSED, PATIENT VERBALIZED UNDERSTANDING. CALL LIGHT WITHIN REACH. WILL CONTINUE TO MONITOR.
[2021-01-01] MEDS: BLOOD GLUCOSE MONITORING 1 DEV DEV FS SCH ×2 (07:23→11:44)
[2021-01-01 08:00] VITALS: BP 130/86
[2021-01-01] MEDS: PANTOPRAZOLE 40 MG TABEC PO SCH (08:33)
--- NOTE | 2021-01-01 09:46 | NUR ---
PATIENT COMPLAINS PAIN 10/10 ON BACK AND SURGERY SITE. PRN MEDICATION GIVEN WITH EDUCATION. PATIENT TOLERATED WELL. NO SIGN OF DISTRESS NOTED. WILL CONTINUE TO MONITOR.
--- NOTE | 2021-01-01 10:09 | NUR ---
ENDORSED PT TO VINNY FOR CONTINUITY OF CARE. PATIENT IS STABLE.
[2021-01-01] MEDS ORDERED: CLIN300C2 PO (11:24)
[2021-01-01] MEDS: INSULIN LISPRO SLIDING SCALE 100 UNITS/ML VIAL SUBQ PRN (11:44)
--- NOTE | 2021-01-01 12:30 | NUR ---
PT WITH C/O PERIRECTAL PAIN IN SURGICAL SITE 09/27, MORPHINE 3MG GIVEN ORDERED
--- NOTE | 2021-01-01 13:32 | NUR ---
WOUND CARE DONE AND PROVIDED WOUND CARE INSTRUCTIONS TO PT'S . SUPPLIES ALSO PROVIDED
[2021-01-01] MEDS: GAUZE TP SCH (13:33)
--- NOTE | 2021-01-01 14:15 | NUR ---
DISCHARGE INSTRUCTIONS AND PRESCRIPTION GIVEN TO PT AND FAMILY, VERBALIZED UNDERSTANDING
--- NOTE | 2021-01-01 14:34 | NUR ---
ASSISTED TO FRONT LOBBY
== END 2021-01-01 14:25 | disposition home health service (06) | DRG 710 ==
LOC: MED 11:32 → MMU 16:47 → MTU 18:22
PROVIDERS: ADMIT Family Medicine; ATTEND Family Medicine
PROC: 0D9P0ZZ Drainage of Rectum, Open Approach (ICD-10-PCS; principal; 2020-12-29 11:30)
DX: A41.9 Sepsis, unspecified organism (principal); E43 Unspecified severe protein-calorie malnutrition; R18.8 Other ascites; C18.9 Malignant neoplasm of colon, unspecified; D63.8 Anemia in other chronic diseases classified elsewhere; L98.419 Non-pressure chronic ulcer of buttock with unspecified severity; E87.1 Hypo-osmolality and hyponatremia; E86.0 Dehydration; R65.20 Severe sepsis without septic shock; K61.1 Rectal abscess; K21.9 Gastro-esophageal reflux disease without esophagitis; D49.0 Neoplasm of unspecified behavior of digestive system; K59.09 Other constipation; K62.89 Other specified diseases of anus and rectum; D75.839 Thrombocytosis, unspecified; D50.9 Iron deficiency anemia, unspecified; L02.31 Cutaneous abscess of buttock; J45.909 Unspecified asthma, uncomplicated; M89.9 Disorder of bone, unspecified; Z20.822 Contact with and (suspected) exposure to COVID-19; E11.9 Type 2 diabetes mellitus without complications; E87.6 Hypokalemia; R74.01 Elevation of levels of liver transaminase levels; Z92.21 Personal history of antineoplastic chemotherapy; Z93.3 Colostomy status; Z68.22 Body mass index [BMI] 22.0-22.9, adult; Z79.899 Other long term (current) drug therapy
CPT/HCPCS: 36415; 71045; 80048; 80053; 80305; 81003; 82150; 82948; 83036; 83605; 83690; 83735; 83880; 84100; 84436; 84439; 84443; 84479; 84484; 85025; 85610; 85730; 87040; 87081; 87086; 93005; 96361; 96365; 96367; 99291; J0696; J1170; J2001; J2250; J2270; J2543; J2704; J2765; J3010; J3490; J7030; J7060; Q0092; Q9967